=== PATIENT | female | born 1980 | race Caucasian/White ===

== ENCOUNTER 2022-12-29 12:01 | Emergency (ER) | payer MEDICAID, SELFPAY ==
[2022-12-29 12:06] VITALS: BP 129/86; PULSE 124; RESP 18; TEMP 36.8; O2SAT 98; BMI 27.3
--- NOTE | 2022-12-29 12:18 | XR_ITS ---
The [address] [address] Patient Name: JOVANY MONROE MRN: [id number] date: 1980 Sex: F Assigned Patient Location: ER Current Patient Location: ED.MAIN Accession/Order Number: [id number] Exam Date: 12/29/2022 12:55 Report Date: 12/29/2022 14:13 At the request of: LIZET LOYD Procedure: XR ribs RT min 3V w CXR1V EXAMINATION: XR ribs RT min 3V w CXR1V HISTORY: atraumatic pain ; posterior right rib pain; no known injury COMPARISON: No relevant comparison available. FINDINGS: LUNGS: No significant pulmonary parenchymal abnormalities. PLEURA: No pneumothorax, effusion, or pleural thickening. MEDIASTINUM: No visible mass or adenopathy. CARDIAC: No cardiomegaly or cardiac silhouette abnormality. RIBS: Normal. No significant arthropathy or acute abnormality. OTHER: Negative. XR/XR ribs RT min 3V w CXR1V IMPRESSION: 1. No acute cardiopulmonary process. 2. No appreciable rib abnormality. Electronically authenticated by: RAFA JAMES Date: 12/29/2022 14:13
--- NOTE | 2022-12-29 12:19 | ED_ITS ---
HPI - General Adult General Chief complaint: Extremity Injury, Upper Stated complaint: UPPER EXTREMITY PAIN TO RIGHT SIDE AND BACK Time Seen by Provider: 12/29/22 12:05 Source: patient Mode of arrival: walk-in History of Present Illness HPI narrative: 42-year-old female presents to the emergency department for right rib area pain. She's had it for about a week and there was no injury. No dysuria or hematuria. It's worse if she moves. The pain is sharp. Related Data Home Medications Medication Instructions Recorded Confirmed albuterol sulfate 90 mcg/actuation 2 inh inhalation Q6H PRN shortness 12/29/22 12/29/22 aerosol inhaler (Ventolin HFA) of breath or wheezing amitriptyline 100 mg tablet 100 mg PO DAILY 12/29/22 12/29/22 eszopiclone 3 mg tablet 3 mg PO .qhs 12/29/22 12/29/22 omeprazole 40 mg capsule,delayed 40 mg PO BID 12/29/22 12/29/22 release quetiapine 200 mg tablet 400 mg PO DAILY 12/29/22 12/29/22 rosuvastatin 20 mg tablet mg 12/29/22 sertraline 100 mg tablet 100 mg PO Q24H 12/29/22 12/29/22 topiramate 100 mg tablet 100 mg PO DAILY 12/29/22 12/29/22 Previous Rx's Medication Instructions Recorded acetaminophen 300 mg-codeine 30 mg 1 tab PO Q6H PRN pain 5 days #20 12/29/22 tablet tabs ibuprofen 800 mg tablet 800 mg PO Q8H PRN pain #20 tabs 12/29/22 methocarbamol 500 mg tablet 500 mg PO Q6H PRN pain #20 tabs 12/29/22 Allergies Allergy/AdvReac Type Severity Reaction Status Date / Time sulfamethoxazole AdvReac Intermediate Verified 12/29/22 12:09 [From Bactrim] trimethoprim [From Bactrim] AdvReac Intermediate Verified 12/29/22 12:09 Review of Systems ROS Narrative A ten point review of systems is negative except as noted above. PFSH PFSH Social History Smoking status: Former smoker Exam Narrative Exam Narrative: Nurses note and vital signs reviewed and patient is not hypoxic. General: The patient appears well and in no apparent distress. Skin: Warm, dry, no pallor noted. There is no rash noted. Head: Normocephalic, atraumatic Eye: Normal conjunctiva, no drainage Ears, Nose, Mouth, and Throat: oral mucosa is moist. Nares patent. Cardiovascular: Regular Rate and Rhythm Respiratory: Patient is in no distress, no accessory muscle use, lungs are clear to auscultation, no wheezing, rales or rhonchi Back: no bruise or rash. Palpation of the right posterior lateral rib area reproduces her symptoms. No crepitus or erythema. GI: soft and nontender Musculoskeletal: The patient has no evidence of calf tenderness, no pitting edema, symmetrical pulses noted bilaterally Neurological: A&O, normal speech Psychiatric: Cooperative Constitutional Vital Signs, click to edit/add: Last Vital Signs Temp 98.2 F 12/29/22 12:06 Pulse 124 H 12/29/22 12:06 Resp 18 12/29/22 12:06 BP 129/86 12/29/22 12:06 Pulse Ox 98 12/29/22 12:06 Course Vital Signs Vital signs: Vital Signs Temperature 98.2 F 12/29/22 12:06 Pulse Rate 124 H 12/29/22 12:06 Respiratory Rate 18 12/29/22 12:06 Blood Pressure 129/86 12/29/22 12:06 Pulse Oximetry 98 12/29/22 12:06 Temperature 98.2 F 12/29/22 12:06 Pulse Rate 124 H 12/29/22 12:06 Respiratory Rate 18 12/29/22 12:06 Blood Pressure 129/86 12/29/22 12:06 Pulse Oximetry 98 12/29/22 12:06 Medical Decision Making [facility] Narrative Medical decision making narrative: urinalysis and chest x-ray are negative. I've no clinical suspicion for pulmonary embolism. She'll be treated symptomatically. Treatment diagnosis and follow-up were discussed with the patient. Differential Diagnosis Differential Diagnosis: chest wall pain, urinary tract infection, kidney stone Lab Data Lab results reviewed: Yes I reviewed the patient's lab results Labs: Lab Results 12/29/22 Range/Units 12:26 Urine Color Lt. yellow (YELLOW) Urine Clarity Clear (CLEAR) Urine pH 7.0 (5.0-9.0) Ur Specific [place] 1.020 (1.005-1.025) Urine Protein Negative (NEG/TRACE) mg/dL Urine Glucose (UA) Negative (NEGATIVE) mg/dL Urine Ketones Negative (NEGATIVE) mg/dL Urine Occult Blood Negative (NEGATIVE) Urine Nitrite Negative (NEGATIVE) Urine Bilirubin Negative (NEGATIVE) Urine Urobilinogen 1.0 (0.2-1.0) EU/dL Ur Leukocyte Esterase Negative (NEGATIVE) Urine RBC 0-2 (0-2) #/HPF Urine WBC 0-2 A (NONE SEEN) #/HPF Ur Squamous Epith Cells Few A (NONE/RARE) #/LPF Urine Crystals None seen (None Seen) #/HPF Urine Bacteria Trace A (NONE SEEN) #/HPF Urine Casts None seen (NONE SEEN) #/LPF Urine Mucus None seen (NONE SEEN) Imaging Data rib x-rays: Radiologist's impression: Procedure: XR ribs RT min 3V w CXR1V EXAMINATION: XR ribs RT min 3V w CXR1V HISTORY: atraumatic pain ; posterior right rib pain; no known injury COMPARISON: No relevant comparison available. FINDINGS: LUNGS: No significant pulmonary parenchymal abnormalities. PLEURA: No pneumothorax, effusion, or pleural thickening. MEDIASTINUM: No visible mass or adenopathy. CARDIAC: No cardiomegaly or cardiac silhouette abnormality. RIBS: Normal. No significant arthropathy or acute abnormality. OTHER: Negative. IMPRESSION: 1. No acute cardiopulmonary process. 2. No appreciable rib abnormality. Electronically authenticated by: RAFA JAMES Date: 12/29/2022 14:13 Discharge Plan Discharge Chief Complaint: Extremity Injury, Upper Clinical Impression: Rib pain on right side Patient Disposition: Home, Self-Care Time of Disposition Decision: 14:41 Condition: Good Mode of Transportation: Private Vehicle Prescriptions / Home Meds: New methocarbamol 500 mg tablet 500 mg PO Q6H PRN (Reason: pain) Qty: 20 0RF acetaminophen-codeine 300-30 mg tablet 1 tab PO Q6H PRN (Reason: pain) 5 Days Qty: 20 0RF ibuprofen 800 mg tablet 800 mg PO Q8H PRN (Reason: pain) Qty: 20 0RF No Action rosuvastatin 20 mg tablet topiramate 100 mg tablet 100 mg PO DAILY sertraline 100 mg tablet 100 mg PO Q24H albuterol sulfate [Ventolin HFA] 90 mcg/actuation HFA aerosol inhaler 2 inh INHALATION Q6H PRN (Reason: shortness of breath or wheezing) amitriptyline 100 mg tablet 100 mg PO DAILY eszopiclone 3 mg tablet 3 mg PO .qhs omeprazole 40 mg capsule,delayed release(DR/EC) 40 mg PO BID quetiapine 200 mg tablet 400 mg PO DAILY Instructions: Chest Wall Pain (ED) Stand Alone Forms: Portal Instructions Referrals: Shelley Brown MD [Primary Care Provider] - 1 week
[2022-12-29 13:02] LABS: Bilirubin Urine NEGATIVE (NEGATIVE); Blood Urine NEGATIVE (NEGATIVE); Clarity Urine CLEAR (CLEAR); Color Urine LT. YELLOW (YELLOW); Glucose Urine UA NEGATIVE (NEGATIVE); Ketones Urine NEGATIVE (NEGATIVE); Leukocyte Esterase Urine NEGATIVE (NEGATIVE); Nitrite Urine NEGATIVE (NEGATIVE); Protein Urine NEGATIVE (NEG/TRACE)
[2022-12-29 13:17] LABS: Bacteria Urine TRACE #/HPF (NONE SEEN); Cast Seen? NONE SEEN #/LPF (NONE SEEN); Crystals Seen? None Seen #/HPF (None Seen); Mucus Urine NONE SEEN (NONE SEEN); RBC Urine 0-2 #/HPF (0-2); Squamous Epithelial Cell Urine FEW #/LPF (NONE/RARE); WBC Urine 0-2 #/HPF (NONE SEEN)
[2022-12-29] MEDS: KETOROLAC TROMETHAMINE 60 MG/2 ML VIAL IM (15:06)
== END 2022-12-29 15:07 | disposition home or self-care (01) ==
PROVIDERS: Emergency Provider Emergency Medicine; PCP Family Medicine
DX: R07.81 Pleurodynia (principal); Z79.899 Other long term (current) drug therapy; Z87.891 Personal history of nicotine dependence
CPT/HCPCS: 71101; 81001; 96372; 99285

== ENCOUNTER 2023-08-17 17:14 | Outpatient (OUT) | payer MEDICAID, SELFPAY ==
--- OUTSIDE RECORDS SUMMARY | 2023-08-17 17:25 | XMS_ITS | CCD ---
Author Organization [facility] ion [facility] Care Team Providers Care Hair Stylist Name Role Phone MD Jose Luis Gerard Attending Provider MD Shelley San Primary Care Provider [phone] Jose Luis Gerard Unavailable JASWINDER, DR SHELLEY Oscar Admitting Unavailable SAN, DR SHELLEY Oscar Attending Unavailable SAN, DR SHELLEY Oscar Primary Care Unavailable JASWINDER, DR SHELLEY Oscar Consulting Unavailable JASWINDER, DR SHELLEY Oscar Admitting Unavailable SAN, DR SHELLEY Oscar Attending Unavailable SAN, DR SHELLEY Oscar Primary Care Unavailable SAN, DR SHELLEY Oscar Consulting Unavailable BRIELLE, DR MELTON Admitting Unavailable BRIELLE, DR MELTON Attending Unavailable SAN, DR SHELLEY Oscar Primary Care Unavailable HOBSON, DR ELOY Tony Consulting Unavailable BRIELLE, DR MELTON Consulting Unavailable SAMSAIGNACIO Admitting Unavailable SAMSAIGNACIO Attending Unavailable SAN, DR SHELLEY Oscar Primary Care Unavailable SAMIGNACIO BENDER Consulting Unavailable BRIELLE, DR MELTON Admitting Unavailable BRIELLE, DR MELTON Attending Unavailable SAN, DR SHELLEY Oscar Primary Care Unavailable BRIELLE, DR MELTON Consulting Unavailable JASWINDER, DR SHELLEY Oscar Primary Care Unavailable BRITTNEE GA Admitting Unavailable BRITTNEE GA Attending Unavailable BRITTNEE GA Consulting Unavailable ELOY BUSTAMANTE Consulting Unavailable JASWINDER, DR SHELLEY Oscar Primary Care Unavailable BRITTNEE GA Admitting Unavailable BRITTNEE GA Attending Unavailable LORI CARMEN Consulting Unavailable ANGELO RUIZ Consulting Unavailable JASWINDER, DR SHELLEY Oscar Admitting Unavailable JASWINDER, DR SHELLEY Oscar Attending Unavailable JASWINDER, DR SHELLEY Oscar Primary Care Unavailable Shelley San Unavailable Jill Noel Unavailable Leo Shin MD Unavailable Devin Villanueva MD Primary Care Provider Monica BAILON-Harish NIELSEN Unavailable OLIVER REYES Attending Unavailable OLIVER REYES Attending Unavailable HARISH PARRY Attending Unavailab le HARISH PARRY Attending Unavailab le HARISH PARRY Attending Unavailab le Allergies Allergy Classification Reported Allergen(s) Allergy Type Date of Onset Reaction(s) Facility (3 sources) Nitrofurantoin Drug Allergy 09-24-19 22 [facility] (2 sources) Sulfamethoxazole Drug Allergy 09-24-19 22 [facility] (2 sources) Trimethoprim Drug Allergy 09-24-19 22 [facility] (9 sources) NITROFURANTOIN, MACROCRYSTALS / Nitrofurantoin, Monohydrate Drug Allergy Unknown [facility] Other (10 sources) Sulfamethoxazole / Trimethoprim Drug Allergy 07-13-19 23 Unknown [facility] Other (10 sources) varenicline Drug Allergy 07-13-19 23 GI upset, insomnia [facility] Other (1 source) Nitrofurantoin Drug Allergy 02-16-19 14 [facility] (1 source) Sulfamethoxazole / Trimethoprim Drug Allergy 02-16-19 14 [facility] (5 sources) Allergies Reconciled Propensity to adverse reactions Unknown [facility] Other (1 source) Corticosteroids and derivatives Drug Intolerance 07-13-19 23 [facility] Medications Current Medications Medication Drug Class(es) Dates Sig (Normalized) Sig (Original) [id number] 200 actuat albuterol 0.09 mg/actuat metered dose inhaler (3 sources) beta2-Adrenergic Agonist Start: 09-23-2021 Albuterol Sulfate (Ventolin Hfa) 90 mcg/actuation HFA aerosol inhaler Active 1 - 2 PUFF INHALATION As Directed September 23, 2021 12:00am Start: 09-23-2021 Albuterol Sulf ate (Ventolin Hfa) 90 mcg/actuation HFA aerosol inhaler Active 1 - 2 PUFF INHALATION As Directed September 23, 2021 12:00am Start: 08-06-2021 take 2 puff(s) by in halation every four hours Ventolin HFA 108 (90 Base) MCG/ACT inhaler Inhale 2 puffs every 4 (four) hours if needed. 0 08/06/2021 Active amitriptyline hydrochloride 100 mg oral tablet (12 sources) Tricyclic Antidepressant Start: 03-10-2023 End: 06-08-2023 take 1 tablet by mouth at bedtime amitriptyline (Elavil) 100 MG tablet Indications: Recurrent major depressive disorder, remission status unspecified (HCC) (CMS/HCC) Take 1 tablet (100 mg) by mouth at bedtime 90 tablet 0 03/10/2023 06/08/2023 Active Start: 09-23-2021 take 100 mg by mouth at bedtim e Amitriptyline Active 100 MG PO Bedtime September 23, 2021 12:00am Start: 09-23-2021 take 100 mg by mouth at bedtim e Amitriptyline Active 100 MG PO Bedtime September 23, 2021 12:00am take 1 tablet by supa th once daily at bedtime Elavil 100 MG 1 tablet at bedtime Orally Once a day Active 120 actuat budesonide 0.08 mg/actuat / formoterol fumarate 0.0045 mg/actuat metered dose inhaler (2 sources) Corticosteroid, beta2-Adrenergic Agonist Start: 09-23-2021 take 1 puff(s) by inhalation once daily Budesonide-Formoterol (Symbicort) 80-4.5 mcg/actuation HFA aerosol inhaler Active 1 PUFF INHALATION Daily September 23, 2021 12:00am Start: 09-23-2021 take 1 puff(s) by in halation once daily Budesonide-Formoterol (Symbicort) 80-4.5 mcg/actuation HFA aerosol inhaler Active 1 PUFF INHALATION Daily September 23, 2021 12:00am cyclobenzaprine hydrochloride 10 mg oral tablet (1 source) Muscle Relaxant Start: 01-27-2022 take 1 tablet by mouth three times daily as needed for muscle spasms cyclobenzaprine (Flexeril) 10 MG tablet TAKE 1 TABLET BY MOUTH THREE TIMES DAILY NEEDED MUSCLE SPASM 0 01/27/2022 Active eszopiclone 3 mg oral tablet (12 sources) Start: 01-22-2023 take 1 tablet by mouth at bedtime eszopiclone (Lunesta) 3 MG tablet Indications: Chronic insomnia , Sleep apnea, unspecified type Take 1 tablet (3 mg) by mouth at bedtime 30 tablet 1 01/22/2023 Active Start: 09-23-2021 take 3 mg by mouth once daily Eszopiclone Active 3 MG PO Daily September 23, 2021 12:00am Start: 09-23-2021 take 3 mg by mouth once daily Eszopiclone Active 3 MG PO Daily September 23, 2021 12:00am take 1 tablet by supa th every twenty-four hours Lunesta 3 MG 1 tablet immediately before bedtime Orally Once a day Active Ethinyl Estradiol / Levonorgestrel (2 sources) Progestin, Estrogen, Progestin-containing Intrauterine Device Start: 07-24-2022 End: 07-24-2023 levonorgestrel-ethinyl estradiol (Seasonale) 0.15-0.03 MG tablet Indications: Surveillance for control, oral contraceptives Take 1 tablet by mouth in the morning. 84 tablet 3 07/24/2022 07/24/2023 Active take 1 tablet by supa th every twenty-four hours Seasonique 0.15-0.03 &0.01 MG 1 tablet Orally Once a day Active Norethindrone Ac-Eth Estradiol (6 sources) Estrogen Start: 09-23-2021 take 0.05 ug by mouth once daily Norethindrone Ac-Eth Estradiol (Rogelio 1/20 (21)) 1-20 mg-mcg tablet Active 1 TAB PO Daily September 23, 2021 12:00am take 1 tablet by supa th every twenty-four hours Loestrin 1.5/30 (21) 1.5-30 MG-MCG 1 tablet Orally Once a day Active 1.5 ml fremanezumab-vfrm 150 mg/ml auto-injector (1 source) Start: 01-29-2022 Ajovy 225 MG/1.5ML auto-injector INJECT 1 (ONE) pen INTRAMUSCULARLY EVERY month DIRECTED 0 01/29/2022 Active hydrOXYzine pamoate 50 mg oral capsule (4 sources) Antihistamine take 1 capsule by mouth at bedtime as needed Vistaril 50 MG 1 capsule at bedtime as needed Orally PRN Active ibuprofen 800 mg oral tablet (2 sources) Nonsteroidal Anti-inflammatory Drug Start: 09-23-2021 Ibuprofen Active 800 MG PO As Directed September 23, 2021 12:00am Start: 09-23-2021 Ibuprofen Acti ve 800 MG PO As Directed September 23, 2021 12:00am MiraLax 17 GM/SCOOP (5 sources) take 17 g by mouth once daily MiraLax 17 GM/SCOOP as directed Orally Once a day Active omeprazole 40 mg delayed release oral capsule (14 sources) Proton Pump Inhibitor Start: 09-24-2021 take 40 mg by mouth twice daily Omeprazole Active 40 MG PO Twice daily 60 September 24, 2021 12:00am Start: 09-24-2021 take 40 mg by mouth twice amaris y Omeprazole Active 40 MG PO Twice daily 60 September 24, 2021 12:00am Start: 02-28-2019 End: 09-24-2021 take 1 capsule by mouth once daily Omeprazole 40 MG 1 capsule 30 minutes before morning meal Orally Once a day for 30 days Feb, Active Start: 02-28-2019 take 1 capsule by mo [facility] twice daily Omeprazole 40 MG 1 capsule 30 minutes before morning meal Orally bid for 90 days Feb, Active polyethylene glycol [id number] [id number] mg powder for oral solution (4 sources) Osmotic Laxative take 17 g by mouth once daily MiraLax 17 GM/SCOOP as directed Orally Once a day Active promethazine hydrochloride 25 mg oral tablet (10 sources) Phenothiazine promethazine (Ph energan) 25 MG tablet Take 25 mg by mouth every 12 (twelve) hours if needed. 0 Active Promethazine HCl 25 MG 1 tablet as needed Orally PRN for 30 days Active QUEtiapine 200 mg oral tablet (20 sources) Atypical Antipsychotic Start: 03-10-2023 take 1 tablet by mouth at bedtime QUEtiapine (SEROquel) 200 MG tablet Indications: Recurrent major depressive disorder, remission status unspecified (HCC) (CMS/HCC) Take 1 tablet (200 mg) by mouth at bedtime 30 tablet 1 03/10/2023 Active Start: 12-07-2023 take 1 tablet by supa th at bedtime QUEtiapine (SEROquel) 400 MG tablet Indications: Recurrent major depressive disorder, remission status unspecified (HCC) (CMS/HCC) Take 1 tablet (400 mg) by mouth at bedtime 30 tablet 2 01/22/2023 Active Start: 09-01-2022 take 1 tablet by supa th twice daily as needed for anxiety QUEtiapine (SEROquel) 25 MG tablet Indications: Recurrent major depressive disorder, remission status unspecified (HCC) (CMS/HCC) Take 1 tablet (25 mg) by mouth 2 (two) times a day as needed (anxiety). 60 tablet 1 09/01/2022 Active Start: 09-23-2021 take 100 mg by mouth once amaris y Quetiapine Active 100 MG PO Daily September 23, 2021 12:00am Start: 09-23-2021 take 400 mg by mouth once amaris y Quetiapine Active 400 MG PO Daily September 23, 2021 12:00am Start: 09-23-2021 take 100 mg by mouth once amaris y Quetiapine Active 100 MG PO Daily September 23, 2021 12:00am Start: 09-23-2021 take 400 mg by mouth once amaris y Quetiapine Active 400 MG PO Daily September 23, 2021 12:00am take 1 tablet by supa th every twenty-four hours SEROquel 100 MG 1 tablet at bedtime Orally Once a day Active take 1 tablet by supa th every twenty-four hours SEROquel XR 400 MG 1 tablet in the evening Orally Once a day Active rosuvastatin calcium 20 mg oral tablet (5 sources) HMG-CoA Reductase Inhibitor take 1 tablet by mouth every twenty-four hours Rosuvastatin Calcium 20 MG 1 tablet Orally Once a day for 30 days Active Seasonique 0.15-0.03 &0.01 MG (4 sources) take 1 tablet by mouth once daily Seasonique 0.15-0.03 &0.01 MG 1 tablet Orally Once a day Active sertraline 100 mg oral tablet (12 sources) Serotonin Reuptake Inhibitor Start: 11-13-19 take 1 tablet by mouth in the morning sertraline (Zoloft) 100 MG tablet Indications: Recurrent major depressive disorder, remission status unspecified (HCC) (CMS/HCC) Take 1 tablet (100 mg) by mouth in the morning and 1 tablet (100 mg) before bedtime. 180 tablet 0 11/12/2022 Active Start: 09-23-2021 take 100 mg by mouth once amaris y Sertraline Active 100 MG PO Daily September 23, 2021 12:00am Start: 09-23-2021 take 100 mg by mouth once amaris y Sertraline Active 100 MG PO Daily September 23, 2021 12:00am take 2 tablets by mo uth every twenty-four hours Zoloft 100 MG 2 TABLETS Orally Once a day Active topiramate 100 mg oral tablet (12 sources) Start: 09-23-2021 take 100 mg by mouth twice daily Topiramate Active 100 MG PO Twice daily September 23, 2021 12:00am Start: 09-23-2021 take 100 mg by mouth twice govind ly Topiramate Active 100 MG PO Twice daily September 23, 2021 12:00am take 1 tablet by supa th in the morning topiramate (Topamax) 100 MG tablet Take 100 mg by mouth in the morning. 0 Active take 2 tablets by mo uth every twelve hours Topamax 100 MG 2 TABLETS Orally TWICE A DAY Active Completed/Discontinued Medications Medication Drug Class(es) Dates Sig (Normalized) Sig (Original) hyoscyamine sulfate 0.125 mg sublingual tablet (6 sources) Start: 04-13-2019 take 1 tablet under the tongue three times daily as needed Hyoscyamine Sulfate SL 0.125 MG 1 tablet under the tongue and allow to dissolve Sublingual Three times a day prn for 30 day(s) Mar, Not-Taking Problems Active Problems Problem Classification Problem Date Documented Da te Episodic/Chronic Anxiety disorders (20 sources) Generalized anxiety disorder; Translations: [Generalized anxiety disorder] Onset: 3 07-12-2022 Chronic Conditions associated with dizziness or vertigo (4 sources) Dizziness and giddiness; Translations: [DIZZINESS AND GIDDINESS] Onset: 2 Episodic Contraceptive and procreative management (9 sources) Intrauterine contraceptive device in situ; Translations: [Presence of (intrauterine) contraceptive device] Episodic Endometriosis (1 source) Endometriosis (clinical); Translations: [Endometriosis, unspecified] Onset: 3 07-12-2022 Chronic Esophageal disorders (15 sources) Gastroesophageal reflux disease; Translations: [Gastro-esophageal reflux disease without esophagitis] Onset: 3 07-12-2022 Chronic Fluid and electrolyte disorders (1 source) Dehydration; Translations: [DEHYDRATION] Onset: 2 Episodic Headache; including migraine (20 sources) Migraine; Translations: [Migraine, unspecified, not intractable, without status migrainosus] Onset: 3 07-12-2022 Chronic Headache; including migraine (5 sources) Headache; Translations: [Headache, unspecified] Episodic Headache; including migraine (1 source) Headache; including migraine; Translations: [HEADACHE UNSPECIFIED] Onset: 2 Heart valve disorders (16 sources) Mitral valve prolapse; Translations: [Nonrheumatic mitral (valve) prolapse] Onset: 2 07-12-2022 Chronic Malaise and fatigue (14 sources) Weakness; Translations: [Fatigue] Onset: 2 Episodic Menstrual disorders (20 sources) Irregular periods; Translations: [Irregular menstruation, unspecified] Onset: 2 Chronic Miscellaneous mental health disorders (10 sources) Persistent insomnia; Translations: [Psychophysiologic insomnia] Onset: 3 07-12-2022 Chronic Mood disorders (20 sources) Recurrent major depression; Translations: [Major depressive disorder, recurrent, unspecified] Onset: 3 07-12-2022 Chronic Mycoses (5 sources) Candidiasis; Translations: [Candidiasis, unspecified] Episodic Nausea and vomiting (14 sources) Nausea; Translations: [Nausea and vomiting] Onset: 2 Episodic Nonspecific chest pain (6 sources) Chest pain, unspecified; Translations: [Chest pain] Onset: 2 Episodic Other circulatory disease (5 sources) Elevated blood-pressure reading without diagnosis of hypertension; Translations: [Elevated blood-pressure reading, without diagnosis of hypertension] Episodic Other connective tissue disease (1 source) Other muscle spasm; Translations: [OTHER MUSCLE SPASM] Onset: 2 Episodic Other female genital disorders (10 sources) Dyspareunia due to non-psychogenic cause in the female; Translations: [Other specified dyspareunia] Onset: 3 07-12-2022 Chronic Other female genital disorders (9 sources) Pain in female genitalia on intercourse; Translations: [Unspecified dyspareunia] Chronic Other gastrointestinal disorders (9 sources) Chronic idiopathic constipation; Translations: [Chronic idiopathic constipation] Chronic Other gastrointestinal disorders (10 sources) Irritable bowel syndrome characterized by constipation; Translations: [Irritable bowel syndrome with constipation] Onset: 3 07-12-2022 Chronic Other gastrointestinal disorders (9 sources) Constipation; Translations: [Constipation, unspecified] Episodic Other gastrointestinal disorders (9 sources) Slow transit constipation; Translations: [Slow transit constipation] Episodic Other hematologic conditions (5 sources) Personal history of diseases of the blood and blood-forming organs and certain disorders involving the immune mechanism; Translations: [Disease of blood AND/OR blood-forming organ] Episodic Other hereditary and degenerative nervous system conditions (1 source) Restless legs; Translations: [Restless legs syndrome] Onset: 3 07-12-2022 Chronic Other hereditary and degenerative nervous system conditions (1 source) Finding of scapular structure; Translations: [Other specified extrapyramidal and movement disorders] Onset: 3 07-12-2022 Chronic Other lower respiratory disease (5 sources) Dyspnea; Translations: [Other forms of dyspnea] Episodic Other nervous system disorders (5 sources) Trigeminal neuralgia; Translations: [Trigeminal neuralgia] Episodic Other nutritional; endocrine; and metabolic disorders (5 sources) Abnormal weight loss; Translations: [Abnormal weight loss] Episodic Other nutritional; endocrine; and metabolic disorders (5 sources) Body mass index 25-29 - overweight; Translations: [Body mass index (BMI) 25.0-25.9, adult] Episodic Other nutritional; endocrine; and metabolic disorders (5 sources) Abnormal weight gain; Translations: [Abnormal weight gain] Episodic Other nutritional; endocrine; and metabolic disorders (5 sources) Overweight; Translations: [Overweight] Episodic Other screening for suspected conditions (not mental disorders or infectious disease) (18 sources) Atypical squamous cells of undetermined significance ; Translations: [Abnormal cytological findings in specimens from other organs, systems and tissues] Episodic Other skin disorders (5 sources) Generalized hyperhidrosis; Translations: [Generalized hyperhidrosis] Episodic Residual codes; unclassified (1 source) Sleep apnea; Translations: [Sleep apnea, unspecified] Onset: 3 07-12-2022 Chronic Residual codes; unclassified (9 sources) Family history of malignant neoplasm of pancreas; Translations: [Family history of malignant neoplasm of digestive organs] Episodic Residual codes; unclassified (5 sources) Normal body mass index; Translations: [Body mass index (BMI) 21.0-21.9, adult] Episodic Screening and history of mental health and substance abuse codes (6 sources) Personal history of nicotine dependence; Translations: [Nicotine dependence] Onset: 2 Episodic Spondylosis; intervertebral disc disorders; other back problems (20 sources) Degeneration of cervical intervertebral disc; Translations: [Other cervical disc degeneration, unspecified cervical region] Onset: 3 07-12-2022 Chronic Spondylosis; intervertebral disc disorders; other back problems (1 source) Pain in thoracic spine; Translations: [PAIN IN THORACIC SPINE] Onset: 2 Episodic Sprains and strains (1 source) Strain of muscle and tendon of back wall of thorax, subsequent encounter Episodic Substance-related disorders (19 sources) Light cigarette smoker; Translations: [Nicotine dependence, cigarettes, uncomplicated] Onset: 3 07-12-2022 Chronic Syncope (1 source) Syncope and collapse; Translations: [SYNCOPE AND COLLAPSE] Onset: 2 Episodic Unclassified (1 source) CONTACT W/AND (SUSP) EXPOS COVID-19; Translations: [CONTACT W/AND (SUSP) EXPOS COVID-19] Onset: 2 Past or Other Problems Problem Classification Problem Date Documented Date Episodic/Chronic Abdominal pain (15 sources) Abdominal pain; Translations: [Unspecified abdominal pain] Onset: 07-12-2022 07-12-2022 Episodic Deficiency and other anemia (1 source) Iron deficiency anemia secondary to inadequate dietary iron intake; Translations: [Other iron deficiency anemias] Onset: 07-12-2022 07-12-2022 Episodic Gastritis and duodenitis (10 sources) Gastritis; Translations: [Gastritis, unspecified, without bleeding] Onset: 07-12-2022 07-12-2022 Episodic Other connective tissue disease (10 sources) Fibromyalgia; Translations: [Fibromyalgia] Onset: 07-12-2022 07-12-2022 Episodic Other female genital disorders (19 sources) Cervical intraepithelial neoplasia grade 1; Translations: [Mild cervical dysplasia] Onset: 07-12-2022 07-12-2022 Episodic Other lower respiratory disease (4 sources) Other forms of dyspnea; Translations: [OTHER FORMS OF DYSPNEA] Onset: 10-31-2021 Episodic Sexually transmitted infections (not HIV or hepatitis) (19 sources) 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 TECHNIQUE: A variety of imaging planes and parameters were utilized for visualization of suspected pathology. Images were performed without and with Dotarem contrast. FINDINGS: CEREBRUM: No edema, hemorrhage, mass, acute infarction, or inappropriate atrophy. CEREBELLUM: No edema, hemorrhage, mass, acute infarction, or inappropriate atrophy. BRAINSTEM: No edema, hemorrhage, mass, acute infarction, or inappropriate atrophy. CSF SPACES: Ventricles, cisterns, and sulci are appropriate for age. No hydrocephalus, subarachnoid hemorrhage, or mass. SKULL: No mass or other significant visible lesion. SINUSES: Limited views demonstrate no significant mucosal thickening or fluid. ORBITS: Limited views are unremarkable. OTHER: No abnormal meningeal or parenchymal enhancement. IMPRESSION: Mild scattered white matter signal abnormality with no associated restricted diffusion or postcontrast enhancement. Nonspecific, possibly chronic small vessel ischemic changes No acute infarct Electronically authenticated by: ELOY GILLETTE Date: 2022-02-12 07:28 Normal [facility] ECHOCARDIO M/2D COMPLETEon 1 04-14-2021 ECHOCARDIO M/2D COMPLETE Patient: JOVANY MONROE Exam Date: 02/11/2022 : 1980 Gender:F Ordering : DR SHELLEY SAN M.D. Admission #: [id number] Family : Order #: [id number] CLICK HERE TO VIEW EXAM ECHOCARDIOGRAM REPORT PROCEDURE: CARDIO PULMONARY ECHOCARDIO M/2D COMP INDICATIONS: Mitral valve prolapse COMPARISON: None. DESCRIPTION: COMPLETE ECHOCARDIOGRAM Real-time transthoracic echocardiography with 2D, M-mode, spectral and color flow Doppler performed. QUALITY: Technical quality was good. 64 116# BP 124/100 LEFT VENTRICLE: Normal chamber size. Normal left ventricular wall thickness. LV EF: Normal left ventricular ejection fraction, (>55%). DIASTOLIC: Normal diastolic function. ATRIAL SEPTUM: Visually appears intact. LEFT ATRIUM: Normal chamber size. RIGHT ATRIUM: Normal chamber size. RIGHT VENTRICLE: Normal chamber size. Normal right ventricular systolic function. TRICUSPID VALVE: Normal mobility and thickness. No stenosis with no regurgitation. MITRAL VALVE: Normal mobility and thickness. No mitral valve prolapse. No evidence of mitral valve stenosis. There is no mitral annular calcification. Trivial mitral regurgitation. AORTIC VALVE: Normal trileaflet appearance. No visible sclerosis. Normal leaflet mobility. No evidence of aortic valve stenosis. No aortic regurgitation. AORTIC ROOT: Normal diameter and appearance. PULMONIC VALVE: Normal thickness and mobility. No stenosis. Trivial regurgitation. PERICARDIUM: No evidence of pericardial effusion. IVC: Collapses with inspirations. IVC is normal in size. CONCLUSION: Global left ventricular systolic function is normal; visually estimated ejection fraction is 55 to 60%. No wall motion abnormalities. The right ventricle is normal in size and systolic function. No significant valvular abnormalities. Adult Echocardiography Procedure Report Left Ventricle LVEDD (3.7 - 5.6 cm): 4.43 cm LVESD (2.2 - 4.0 cm): 3.15 cm LVIVS thickness (0.6 - 1.2 cm): 0.71 cm LVPW thickness (0.5 - 1.0 cm): 0.65 cm e': 0.11 m/s E - e': 4.35 LVOT Max Gradient: 1.90 mm[Hg] Peak Velocity (LVOT): 0.69 m/s Mean Velocity (LVOT): 0.52 m/s LVOT Diameter 1.99 cm Left Ventricular Ejection Fraction: 55.94 %, 55.94 % Left Atrium LA Volume Index (2D A2C): 25.69 ml, 25.69 ml Left Atrium Systolic Dimension: 2.84 cm Mitral Valve MV E to A Ratio: 1, 0.96 Mitral Valve A-Wave Peak Velocity: 0.46 m/s, 0.48 m/s Mitral Valve E-Wave Peak Velocity: 0.46 m/s, 0.46 m/s Right Ventricle Aorta AO Root Diam: 2.68 cm Aortic Valve AoV Area (Peak Sanju): 2.32 cm2, 2.30 cm2 AoV Area (VTI): 2.23 cm2, 2.18 cm2 Peak Velocity(Antegrade Flow): 0.94 m/s, 0.92 m/s Peak Gradient(Antegrade Flow): 3.50 mm[Hg], 3.37 mm[Hg] Mean Velocity(Antegrade Flow): 0.70 m/s, 0.66 m/s Mean Gradient(Antegrade Flow): 2.15 mm[Hg], 1.98 mm[Hg] Velocity Time Integral: 19.59 cm, 18.73 cm Tricuspid Valve Peak Velocity: 0.40 m/s Pulmonic Valve Peak Velocity: 0.69 m/s, 0.73 m/s Peak Gradient: 1.90 mm[Hg], 2.14 mm[Hg] Right Atrium Right Atrium Systolic Pressure: 9.93 ml, 9.93 ml Dictated by: Zofia Israel M.D. on 02/18/2022 at 09:48 Approved by: Zofia Israel M.D. on 02/18/2022 at 09:51 Normal [facility] CPKon 01-30-2022 CK [Catalytic activity/Vol] 47 U/L Normal 26-192 [facility] Comment on above: Performed By: #### S SCRArpita GRASTCX #### [facility] [address] [place] [address] Dr. Rajinder Cooley VITAMIN B12on 01-30-2022 Cobalamin (Vitamin B12) [Mass/Vol] 91.0 pg/mL Critically low 193.0-986.0 [facility] Comment on above: Performed By: #### L ACT #### [facility] [address] [place] [address] Dr. Rajinder Cooley VITAMIN D 25 OHon 01-30-2022 VIT D 25-OH 32.4 ng/mL Normal [facility] Comment on above: Performed By: #### L ACT #### [facility] [address] [place] [address] Dr. Rajinder Cooley VIT D RANGES SEE BELOW Normal [facility] Comment on above: Result Comment: <20 ng/mL Vit D deficient 20 - <30 ng/mL Vit D insufficient 30 - 100 ng/mL Vit D sufficient >100 ng/mL Potential Toxicity Performed By: #### L ACT #### [facility] [address] [address] [address] Rajinder Cooley CBC AUTO DIFFon 01-27-2022 BASO # 0.0 103/ul Normal 0.0-0.1 [facility] Comment on above: Performed By: #### C BC #### [facility] [address] [address] [address] Rajinder Cooley Basophils/100 WBC (Bld) 0.7 % Normal 0.2-2.0 [facility] Comment on above: Performed By: #### C BC #### [facility] [address] [place] [address] Dr. Rajinder Cooley EO # 0.1 103/ul Normal 0.0-0.7 [facility] Comment on above: Performed By: #### C BC #### [facility] [address] [place] [address] Dr. Rajinder Cooley Eosinophils/100 WBC (Bld) 1.9 % Normal 0.9-7.0 [facility] Comment on above: Performed By: #### C BC #### [facility] [address] [place] [address] Dr. Rajinder Cooley Erythrocyte distribution width (RBC) [Ratio] 15.0 % Normal 11.0-15.0 [facility] Comment on above: Performed By: #### C BC #### [facility] [address] [place] [address] Dr. Rajinder Cooley Hematocrit (Bld) [Volume fraction] 40.9 % Normal 36.0-48.0 [facility] Comment on above: Performed By: #### C BC #### [facility] [address] [place] [address] Dr. Rajinder Cooley Hemoglobin (Bld) [Mass/Vol] 13.5 g/dL Normal 12.0-16.0 [facility] Comment on above: Performed By: #### C BC #### [facility] [address] [place] [address] Dr. Rajinder Cooley IG # 0.03 10e3/ul Normal 0.00-0.03 [facility] Comment on above: Performed By: #### C BC #### [facility] [address] [address] [address] Rajinder Cooley IG % 0.7 % Critically high 0.0-0.5 [facility] Comment on above: Performed By: #### C BC #### [facility] [address] [address] [address] Rajinder Cooley LYMPH # 1.3 103/ul Normal 1.2-3.8 [facility] Comment on above: Performed By: #### C BC #### [facility] [address] [place] [address] Dr. Rajinder Cooley Lymphocytes/100 WBC (Bld) 30.1 % Normal 20.5-60.0 [facility] Comment on above: Performed By: #### C BC #### [facility] [address] [place] [address] Dr. Rajinder Cooley MANUAL DIFF REQ NO Normal [facility] Comment on above: Performed By: #### C BC #### [facility] [address] [place] [address] Dr. Rajinder Cooley MCH (RBC) [Entitic mass] 33.6 pg Normal 26.7-34.0 [facility] Comment on above: Performed By: #### C BC #### [facility] [address] [place] [address] Dr. Rajinder Cooley MCHC (RBC) [Mass/Vol] 33.0 g/dL Normal 29.9-35.2 [facility] Comment on above: Performed By: #### C BC #### [facility] [address] [place] [address] Dr. Rajinder Cooley MCV (RBC) [Entitic vol] 101.7 fL Critically high 81.0-99.0 [facility] Comment on above: Performed By: #### C BC #### [facility] [address] [place] [address] Dr. Rajinder Cooley MONO # 0.2 103/ul Critically low 0.3-0.8 [facility] Comment on above: Performed By: #### C BC #### [facility] [address] [address] [address] Rajinder Cooley Monocytes/100 WBC (Bld) 5.2 % Normal 1.7-12.0 [facility] Comment on above: Performed By: #### C BC #### [facility] [address] [address] [address] Rajinder Cooley NEUT # 2.6 103/ul Normal 1.4-6.5 [facility] Comment on above: Performed By: #### C BC #### [facility] [address] [address] [address] Rajinder Cooley Neutrophils/100 WBC (Bld) 61.4 % Normal 43.0-75.0 [facility] Comment on above: Performed By: #### C BC #### [facility] [address] [place] [address] Dr. Rajinder Cooley Platelet mean volume (Bld) [Entitic vol] 10.8 fL Normal 9.5-13.5 [facility] Comment on above: Performed By: #### C BC #### [facility] [address] [address] [address] Rajinder Cooley PLT 173 103/ul Normal 150-450 [facility] Comment on above: Performed By: #### C BC #### [facility] [address] [address] [address] Rajinder Cooley RBC 4.02 106/ul Critically low 4.20-5.40 [facility] Comment on above: Performed By: #### C BC #### [facility] [address] [address] [address] Rajinder Cooley WBC 4.3 103/ul Normal 4.0-11.0 [facility] Comment on above: Performed By: #### C BC #### [facility] [address] [address] [address] Rajinder Cooley ER URINE PROFILEon 2 Bilirubin Ql (U) SMALL Abnormal NEGATIVE [facility] Comment on above: Performed By: #### P REGU, ERUR #### [facility] [address] [place] [address] Dr. Rajinder Cooley Clarity (U) CLEAR Normal CLEAR [facility] Comment on above: Performed By: #### P REGU, ERUR #### [facility] [address] [place] [address] Dr. Rajinder Cooley Color (U) YELLOW Normal YELLOW [facility] Comment on above: Performed By: #### P REGU, ERUR #### [facility] [address] [place] [address] Dr. Rajinder AGUDELOD A micrscopic examination will be performed if indicated. Normal [facility] Comment on above: Performed By: #### P REGU, ERUR #### [facility] [address] [place] [address] Dr. Rajinder Cooley Glucose Ql (U) Negative Normal NEGATIVE [facility] Comment on above: Performed By: #### P REGU, ERUR #### [facility] [address] [place] [address] Dr. Rajinder Cooley Hemoglobin Ql (U) Negative Normal NEGATIVE [facility] Comment on above: Performed By: #### P REGU, ERUR #### [facility] [address] [place] [address] Dr. Rajinder Cooley Ketones Ql (U) Negative Normal NEGATIVE [facility] Comment on above: Performed By: #### P REGU, ERUR #### [facility] [address] [place] [address] Dr. Rajinder Cooley LEUKOCYTES Negative Normal NEGATIVE [facility] Comment on above: Performed By: #### P REGU, ERUR #### [facility] [address] [place] [address] Dr. Rajinder Cooley Nitrite Ql (U) Negative Normal NEGATIVE [facility] Comment on above: Performed By: #### P REGU, ERUR #### [facility] [address] [place] [address] Dr. Rajinder Cooley pH (U) 6.0 [pH] Normal 5-9 [facility] Comment on above: Performed By: #### P REGU, ERUR #### [facility] [address] [address] [address] Rajinder Cooley SPEC GRAVITY >=1.030 Abnormal 1.005-<=1.025 [facility] Comment on above: Performed By: #### P REGU, ERUR #### [facility] [address] [address] [address] Rajinder Cooley UA PROTEIN TRACE Normal NEGATIVE/ TRACE [facility] Comment on above: Performed By: #### P REGU, ERUR #### [facility] [address] [address] [address] Rajinder Cooley UR MICRO IND NOT INDICATED Normal [facility] Comment on above: Performed By: #### P REGU, ERUR #### [facility] [address] [place] [address] Dr. Rajinder Cooley Urobilinogen Qn (U) 1.0 {Ivory'U}/dL Normal 0.2 - 1. 0 [facility] Comment on above: Performed By: #### P REGU, ERUR #### [facility] [address] [place] [address] Dr. Rajinder Cooley URon 01-27-2022 , QUAL Negative Normal NEGATIVE [facility] Comment on above: Performed By: #### P REGU, ERUR #### [facility] [address] [place] [address] Dr. Rajinder Cooley PROF CHEM 8 (BAS METB)on Anion gap [Moles/Vol] 10.8 mmol/L Normal [facility] Comment on above: Performed By: #### S SCRN, GRASTCX #### [facility] [address] [address] [address] Rajinder Cooley Calcium [Mass/Vol] 8.5 mg/dL Normal 8.5-10.1 [facility] Comment on above: Performed By: #### S SCRN, GRASTCX #### [facility] [address] [address] [address] Rajinder Cooley Chloride [Moles/Vol] 103 mmol/L Normal 98-107 [facility] Comment on above: Performed By: #### S SCRN, GRASTCX #### [facility] [address] [address] [address] Rajinder Cooley CO2 [Moles/Vol] 23.8 mmol/L Normal 21.0-32.0 [facility] Comment on above: Performed By: #### S SCRN, GRASTCX #### [facility] [address] [place] [address] Dr. Rajinder Cooley Creatinine [Mass/Vol] 0.73 mg/dL Normal 0.55-1.02 [facility] Comment on above: Performed By: #### S SCRN, GRASTCX #### [facility] [address] [place] [address] Dr. Rajinder Cooley EGFR-AF THAI >60 Normal >=60 [facility] Comment on above: Performed By: #### S SCRN, GRASTCX #### [facility] [address] [place] [address] Dr. Rajinder Cooley EGFR-NON AF THAI >60 Normal >=60 [facility] Comment on above: Performed By: #### S SCRN, GRASTCX #### [facility] [address] [place] [address] Dr. Rajinder Cooley Glucose [Mass/Vol] 83 mg/dL Normal 74-106 [facility] Comment on above: Performed By: #### S SCRN, GRASTCX #### [facility] [address] [place] [address] Dr. Rajinder Cooley Potassium [Moles/Vol] 3.6 mmol/L Normal 3.5-5.1 [facility] Comment on above: Performed By: #### S SCRN, GRASTCX #### [facility] [address] [place] [address] Dr. Rajinder Cooley Sodium [Moles/Vol] 134 mmol/L Critically low 136-[address] [facility] Comment on above: Performed By: #### S SCRN, GRASTCX #### [facility] [address] [place] [address] Dr. Rajinder Cooley Urea nitrogen [Mass/Vol] 13.0 mg/dL Normal 7.0-18.0 [facility] Comment on above: Performed By: #### S EMIGDIO GRASTCX #### [facility] [address] [address] [address] Rajinder Cooley Urea nitrogen/Creatinine [Mass ratio] 17.8 mg/mg Normal [facility] Comment on above: Performed By: #### S EMIGDIO GRASTCX #### [facility] [address] [address] [address] Rajinder Cooley XR TSPINE 2 VIEWSon 01-28-20 22 XR TSPINE 2 VIEWS EXAM: XR TSPINE 2 VIEWS HISTORY: Pain following fall COMPARISON: None. TECHNIQUE: 3 views FINDINGS: Straightening of the normal thoracic kyphosis. Vertebral body heights and alignments exhibit no fracture or listhesis. Intervertebral disc space heights are unremarkable. Age-related intervertebral disc space narrowing and endplate osteophytes. IMPRESSION: Age-indeterminate straightening of the normal cervical lordosis. Findings suggest muscle spasm. Electronically authenticated by: ELOY BUSTAMANTE Date: 2022-01-27 15:43 Normal [facility] CBC AUTO DIFFon 01-22-2022 BASO # 0.0 103/ul Normal 0.0-0.1 [facility] Comment on above: Performed By: #### S EMIGDIO GRASTCX #### [facility] [address] [place] [address] Dr. Rajinder Cooley Basophils/100 WBC (Bld) 0.7 % Normal 0.2-2.0 [facility] Comment on above: Performed By: #### S EMIGDIO GRASTCX #### [facility] [address] [place] [address] Dr. Rajinder Cooley EO # 0.1 103/ul Normal 0.0-0.7 [facility] Comment on above: Performed By: #### S EMIGDIO GRASTCX #### [facility] [address] [place] [address] Dr. Rajinder Cooley Eosinophils/100 WBC (Bld) 2.6 % Normal 0.9-7.0 [facility] Comment on above: Performed By: #### S SCRN, GRASTCX #### [facility] [address] [place] [address] Dr. Rajinder Cooley Erythrocyte distribution width (RBC) [Ratio] 14.7 % Normal 11.0-15.0 [facility] Comment on above: Performed By: #### S SCRN, GRASTCX #### [facility] [address] [place] [address] Dr. Rajinder Cooley Hematocrit (Bld) [Volume fraction] 42.8 % Normal 36.0-48.0 [facility] Comment on above: Performed By: #### S SCRN GRASTCX #### [facility] [address] [place] [address] Dr. Rajinder Cooley Hemoglobin (Bld) [Mass/Vol] 14.5 g/dL Normal 12.0-16.0 [facility] Comment on above: Performed By: #### S EMIGDIO GRASTCX #### [facility] [address] [place] [address] Dr. Rajinder Cooley IG # 0.02 10e3/ul Normal 0.00-0.03 [facility] Comment on above: Performed By: #### S EMIGDIO GRASTCX #### [facility] [address] [place] [address] Dr. Rajinder Cooley IG % 0.5 % Normal 0.0-0.5 [facility] Comment on above: Performed By: #### S EMIGDIO GRASTCX #### [facility] [address] [place] [address] Dr. Rajinder Cooley LYMPH # 1.7 103/ul Normal 1.2-3.8 [facility] Comment on above: Performed By: #### S SCRArpita GRASTCX #### [facility] [address] [place] [address] Dr. Rajinder Cooley Lymphocytes/100 WBC (Bld) 40.3 % Normal 20.5-60.0 [facility] Comment on above: Performed By: #### S SCRN, GRASTCX #### [facility] [address] [place] [address] Dr. Rajinder Cooley MANUAL DIFF REQ NO Normal [facility] Comment on above: Performed By: #### S EMIGDIO, GRASTCX #### [facility] [address] [place] [address] Dr. Rajinder Cooley MCH (RBC) [Entitic mass] 32.8 pg Normal 26.7-34.0 [facility] Comment on above: Performed By: #### S EMIGDIO, GRASTCX #### [facility] [address] [place] [address] Dr. Rajinder Cooley MCHC (RBC) [Mass/Vol] 33.9 g/dL Normal 29.9-35.2 [facility] Comment on above: Performed By: #### S EMIGDIO, GRASTCX #### [facility] [address] [place] [address] Dr. Rajinder Cooley MCV (RBC) [Entitic vol] 96.8 fL Normal 81.0-99.0 [facility] Comment on above: Performed By: #### S EMIGDIO, GRASTCX #### [facility] [address] [place] [address] Dr. Rajinder Cooley MONO # 0.3 103/ul Normal 0.3-0.8 [facility] Comment on above: Performed By: #### S EMIGDIO, GRASTCX #### [facility] [address] [place] [address] Dr. Rajinder Cooley Monocytes/100 WBC (Bld) 6.3 % Normal 1.7-12.0 [facility] Comment on above: Performed By: #### S SCRN, GRASTCX #### [facility] [address] [place] [address] Dr. Rajinder Cooley NEUT # 2.1 103/ul Normal 1.4-6.5 [facility] Comment on above: Performed By: #### S SCRN, GRASTCX #### [facility] [address] [place] [address] Dr. Rajinder Cooley Neutrophils/100 WBC (Bld) 49.6 % Normal 43.0-75.0 [facility] Comment on above: Performed By: #### S SCRN, GRASTCX #### [facility] [address] [address] [address] Rajinder Cooley Platelet mean volume (Bld) [Entitic vol] 10.6 fL Normal 9.5-13.5 [facility] Comment on above: Performed By: #### S SCRN, GRASTCX #### [facility] [address] [place], [place] [address] Dr. Rajinder Cooley PLT 236 103/ul Normal 150-450 [facility] Comment on above: Performed By: #### S SCRN, GRASTCX #### [facility] [address] [address] [address] Rajinder Cooley RBC 4.42 106/ul Normal 4.20-5.40 [facility] Comment on above: Performed By: #### S SCRN, GRASTCX #### [facility] [address] [address] [address] Rajinder Cooley WBC 4.3 103/ul Normal 4.0-11.0 [facility] Comment on above: Performed By: #### S SCRN, GRASTCX #### [facility] [address] [address] HEAD WO CONon 01-22-2022 CT HEAD WO CON EXAM: CT HEAD WO CON REASON FOR EXAM: Female, 41 years, Syncope. TECHNIQUE: Computed tomography of the head is performed in the axial projection from the base of the skull to the vertex. Sagittal and coronal reconstructed images are performed. Dose reduction techniques were achieved by using automated exposure control and/or adjustment of mA and/or KVP according to patient size and/or use of iterative reconstruction technique. COMPARISON: None. Comparison is made with report from remote study from 08/19/2006. These images are not available at the time of interpretation. FINDINGS: Normal soft tissues. Normal calvarium. The ventricles have normal size and configuration for patient's age. Normal brain parenchyma. Normal basal ganglia. Normal brainstem. The cerebellum is normal. There is no evidence for acute ischemia. There is no evidence for acute hemorrhage. The visualized paranasal sinuses are clear. IMPRESSION: Normal CT of the brain. Electronically authenticated by: ANGELO RUIZ Date: 2022-01-22 19:42 Normal [facility] Covid-19 PCR (CVDTBH)on SARS-CoV-2 (COVID-19) RNA MUKESH+probe Ql (Unsp spec) Not detected Normal NOT DETECTED [facility] Comment on above: Result Comment: When diagnostic testing is negative, the possibility of a false negative should be considered in the context of a patient's recent exposures and the presence of clinical signs and symptoms consistent with SARS-CoV-2. This test is not yet approved or cleared by the [place] FDA. When there are no FDA-approved or cleared tests available, and other criteria are met, FDA can make tests available under an emergency access mechanism called an Emergency Use Authorization (EUA). The EUA for this test is supported by the [place] of Health and Human Service's declaration that circumstances exist to justify the emergency use of in vitro diagnostics for the detection and/or diagnosis of the virus that causes COVID-19. This EUA will remain in effect for the duration of the COVID-19 declaration justifying emergency of IVDs, unless it is terminated or revoked by the FDA (after which the test may no longer be used). Performed By: #### C VDTBH #### [facility] [address] [place] [address] Dr. Rajinder Cooley D-DIMERon 01-22-2022 D-DIMER 0.42 mg/L FEU Normal <=0.59 [facility] Comment on above: Performed By: #### L ACT #### [facility] [address] [place] [address] Dr. Rajinder Cooley D-DIMER COMMENTS SEE BELOW Normal [facility] Comment on above: Result Comment: Incr eases in D-Dimer concentration observed with thromboembolic events can be variable due to localization, size, and age of the thrombus. Therefore, a thromboembolic event cannot be diagnosed with certainty on the basis of the reference range. D-Dimers may also be elevated for a variety of disorders including: advanced age, , coronary disease, cancer, liver disease, infection, inflammation, hematoma, DIC, trauma, post-surgery, diabetes, thrombolytic or anticoagulant therapy, stress, and generalized hospitalization. Performed By: #### L ACT #### [facility] [address] [place] [address] Dr. Rajinder VALLADARES URINE PROFILEon 2 Bilirubin Ql (U) SMALL Abnormal NEGATIVE [facility] Comment on above: Performed By: #### SAUMYA VIDALESICRO #### [facility] [address] [place] [address] Dr. Rajinder Cooley Clarity (U) CLEAR Normal CLEAR [facility] Comment on above: Performed By: #### SAUMYA VIDALESICRO #### [facility] [address] [place] [address] Dr. Rajinder Cooley Color (U) YELLOW Normal YELLOW [facility] Comment on above: Performed By: #### SAUMYA VIDALESICRO #### [facility] [address] [place] [address] Dr. Rajinder APARICIO A micrscopic examination will be performed if indicated. Normal [facility] Comment on above: Performed By: #### SAUMYA VIDALESICRO #### [facility] [address] [place] [address] Dr. Rajinder Cooley Glucose Ql (U) Negative Normal NEGATIVE [facility] Comment on above: Performed By: #### SAUMYA VIDALESICRO #### [facility] [address] [place] [address] Dr. Rajinder Cooley Hemoglobin Ql (U) TRACE-INTACT Abnormal NEGATIVE [facility] Comment on above: Performed By: #### SAUMYA VIDALESICRO #### [facility] [address] [place] [address] Dr. Rajinder Cooley Ketones Ql (U) >=80 Abnormal NEGATIVE [facility] Comment on above: Performed By: #### SAUMYA VIDALESICRO #### [facility] [address] [place] [address] Dr. Rajinder Cooley LEUKOCYTES Negative Normal NEGATIVE [facility] Comment on above: Performed By: #### SAUMYA VIDALESICRO #### [facility] [address] [place] [address] Dr. Rajinedr Cooley Nitrite Ql (U) Negative Normal NEGATIVE [facility] Comment on above: Performed By: #### Celestina SHORT, UMICRO #### [facility] [address] [address] [address] Rajinder Cooley pH (U) 5.5 [pH] Normal 5-9 [facility] Comment on above: Performed By: #### Celestina SHORT, UMICRO #### [facility] [address] [place] [address] Dr. Rajinder Cooley SPEC GRAVITY >=1.030 Abnormal 1.005-<=1.025 [facility] Comment on above: Performed By: #### Celestina SHORT, UMICRO #### [facility] [address] [place] [address] Dr. Rajinder Cooley UA PROTEIN Negative Normal NEGATIVE/ TRACE [facility] Comment on above: Performed By: #### Celestina SHORT, UMICRO #### [facility] [address] [place] [address] Dr. Rajinder Cooley UR MICRO IND INDICATED Normal [facility] Comment on above: Performed By: #### Celestina SHORT, UMICRO #### [facility] [address] [place] [address] Dr. Rajinder Cooley Urobilinogen Qn (U) 1.0 {Ivory'U}/dL Normal 0.2 - 1. 0 [facility] Comment on above: Performed By: #### Celestina SHORT, UMICRO #### [facility] [address] [place] [address] Dr. Rajinder Cooley GROUP A STREP CULTUREon S. pyogenes Ag Ql (Unsp spec) Culture Observations: NEGATIVE FOR GROUP A STREPTOCOCCUS. Normal [facility] Comment on above: Performed By: #### S SCRN GRASTCX #### [facility] [address] [place] [address] Dr. Rajinder Cooley INFLUENZA A AND B AGon 01-22 INFLUANEGH SEE BELOW Normal [facility] Comment on above: Result Comment: Nega tive for Flu A protein angiten. Infection due to Flu A cannot be ruled out. Flu A angiten in the sample may be below the detection limit of the test. Performed By: #### L ACT #### [facility] [address] [place] [address] Dr. Rajinder Cooley [facility] SEE BELOW Normal [facility] Comment on above: Result Comment: Nega tive for Flu B protein antigen. Infection due to Flu B cannot be ruled out. Flu B antigen in the sample may be below the detection limit of the test. Performed By: #### L ACT #### [facility] [address] [place] [address] Dr. Rajinder Cooley INFLUENZA A AG Negative Normal NEGATIVE SEE COMMENT [facility] Comment on above: Performed By: #### L ACT #### [facility] [address] [place] [address] Dr. Rajinder Cooley INFLUENZA B AG Negative Normal NEGATIVE SEE COMMENT [facility] Comment on above: Performed By: #### L ACT #### [facility] [address] [place] [address] Dr. Rajinder Cooley INTERNAL CONTROLS Within Normal Limits Normal Wi thin Normal Limits [facility] Comment on above: Performed By: #### L ACT #### [facility] [address] [place] [address] Dr. Rajinder Cooley LACTATE/LACTIC ACIDon 2021 Lactate [Moles/Vol] 0.6 mmol/L Normal 0.4-1.9 [facility] Comment on above: Performed By: #### L ACT #### [facility] [address] [place] [address] Dr. Rajinder Cooley PREG HCG QUALon 01-22-2022 , QUAL Negative Normal NEGATIVE [facility] Comment on above: Performed By: #### P REG #### [facility] [address] [place] [address] Dr. Rajinder Cooley PROF 14(COMP METB)on 022 Albumin [Mass/Vol] 3.8 g/dL Normal 3.4-5.0 [facility] Comment on above: Performed By: #### S SCRN, GRASTCX #### [facility] [address] [place] [address] Dr. Rajinder Cooley Albumin/Globulin [Mass ratio] 0.9 {ratio} Normal [facility] Comment on above: Performed By: #### S EMIGDIO GRASTCX #### [facility] [address] [place] [address] Dr. Rajinder Cooley ALP [Catalytic activity/Vol] 55 U/L Normal 46-116 [facility] Comment on above: Performed By: #### S EMIGDIO GRASTCX #### [facility] [address] [place] [address] Dr. Rajinder Cooley ALT [Catalytic activity/Vol] 18 U/L Normal 14-59 [facility] Comment on above: Performed By: #### S EMIGDIO GRASTCX #### [facility] [address] [place] [address] Dr. Rajinder Cooley Anion gap [Moles/Vol] 12.9 mmol/L Normal [facility] Comment on above: Performed By: #### S EMIGDIO GRASTCX #### [facility] [address] [place] [address] Dr. Rajinder Cooley AST [Catalytic activity/Vol] 21 U/L Normal 15-37 [facility] Comment on above: Performed By: #### S EMIGDIO GRASTCX #### [facility] [address] [place] [address] Dr. Rajinder Cooley Bilirubin [Mass/Vol] 0.6 mg/dL Normal 0.2-1.0 [facility] Comment on above: Performed By: #### S EMIGDIO GRASTCX #### [facility] [address] [place] [address] Dr. Rajinder Cooley Calcium [Mass/Vol] 9.0 mg/dL Normal 8.5-10.1 [facility] Comment on above: Performed By: #### S EMIGDIO GRASTCX #### [facility] [address] [place] [address] Dr. Rajinder Cooley Chloride [Moles/Vol] 99 mmol/L Normal 98-107 [facility] Comment on above: Performed By: #### S EMIGDIO GRASTCX #### [facility] [address] [address] [address] Rajinder Cooley CO2 [Moles/Vol] 22.6 mmol/L Normal 21.0-32.0 [facility] Comment on above: Performed By: #### S SCRN, GRASTCX #### [facility] [address] [address] [address] Rajinder Cooley Creatinine [Mass/Vol] 0.70 mg/dL Normal 0.55-1.02 [facility] Comment on above: Performed By: #### S SCRN, GRASTCX #### [facility] [address] [address] [address] Rajinder Cooley EGFR-AF THAI >60 Normal >=60 [facility] Comment on above: Performed By: #### S SCRN, GRASTCX #### [facility] [address] [address] [address] Rajinder Cooley EGFR-NON AF THAI >60 Normal >=60 [facility] Comment on above: Performed By: #### S SCRN, GRASTCX #### [facility] [address] [address] [address] Rajinder Cooley Globulin (S) [Mass/Vol] 4.3 g/dL Normal [facility] Comment on above: Performed By: #### S SCRN, GRASTCX #### [facility] [address] [address] [address] Rajinder Cooley Glucose [Mass/Vol] 84 mg/dL Normal 74-106 [facility] Comment on above: Performed By: #### S SCRN, GRASTCX #### [facility] [address] [address] [address] Rajinder Cooley Potassium [Moles/Vol] 3.5 mmol/L Normal 3.5-5.1 [facility] Comment on above: Performed By: #### S SCRN, GRASTCX #### [facility] [address] [address] [address] Rajinder Cooley Protein [Mass/Vol] 8.1 g/dL Normal 6.4-8.2 [facility] Comment on above: Performed By: #### S SCRN, GRASTCX #### [facility] [address] [place] [address] Dr. Rajinder Cooley Sodium [Moles/Vol] 131 mmol/L Critically low 136-145 [facility] Comment on above: Performed By: #### S SCRN, GRASTCX #### [facility] [address] [place] [address] Dr. Rajinder Cooley Urea nitrogen [Mass/Vol] 11.0 mg/dL Normal 7.0-18.0 [facility] Comment on above: Performed By: #### S SCRN, GRASTCX #### [facility] [address] [place] [address] Dr. Rajinder Cooley Urea nitrogen/Creatinine [Mass ratio] 15.7 mg/mg Normal [facility] Comment on above: Performed By: #### S SCRN, GRASTCX #### [facility] [address] [place] [address] Dr. Rajinder Cooley PROTIMEon 01-22-2022 INR Coag (PPP) [Relative time] 1.06 {INR} Normal [facility] Comment on above: Performed By: #### L ACT #### [facility] [address] [place] [address] Dr. Rajinder Cooley INR GUIDELINES SEE BELOW Normal [facility] Comment on above: Result Comment: VIVI RED INR: 2.0 - 3.0 CONDITIONS NOT LISTED BELOW 2.5 - 3.5 FOR PROSTHETIC HEART VALVE REPLACEMENT 2.5 - 3.5 RECURRENT THROMBOSIS Performed By: #### L ACT #### [facility] [address] [place] [address] Dr. Rajinder Cooley PT Coag (PPP) [Time] 11.4 s Normal 9.0-11.6 [facility] Comment on above: Performed By: #### L ACT #### [facility] [address] [place] [address] Dr. Rajinder Cooley PTTon 01-22-2022 aPTT Coag (Bld) [Time] 23.9 s Normal 22.3-36.2 [facility] Comment on above: Performed By: #### L ACT #### [facility] [address] [place] [address] Dr. Rajinder Cooley STREPT SCREENon 01-22-2022 STREP SCREEN A Negative Normal NEGATIVE [facility] Comment on above: Performed By: #### S SCRArpita, GRASTCX #### [facility] [address] [place] [address] Dr. Rajinder Cooley TROPONIN, HIGH SENSITIVITYon 01-22-2022 HSTROP 4.9 pg/mL Normal 4.0-51.3 [facility] Comment on above: Result Comment: CUT- OFF POINTS HAVE BEEN ESTABLISHED BASED ON THE FOURTH UNIVERSAL DEFINITIONS OF MYOCARDIAL INFARCTION. THE UPPER REFERENCE LIMIT (URL) OF TROPONIN, DEFINED THE 99TH PERCENTILE OF cTnI DISTRIBUTION IN A REFERENCE POPULATION, HAS BEEN CONFIRMED THE DECISION THRESHOLD FOR ND DIAGNOSIS. Performed By: #### S EMIGDIO, GRASTCX #### [facility] [address] [place] [address] Dr. Rajinder Cooley TSHon 01-22-2022 TSH 1.659 uIU/mL Normal 0.358-3.740 [facility] Comment on above: Performed By: #### S EMIGDIO, GRASTCX #### [facility] [address] [place] [address] Dr. Rajinder Cooley URINE MICROSCOPIC ONLYon BACTERIA TRACE Abnormal NONE SEEN [facility] Comment on above: Performed By: #### SAUMYA VIDALESICRO #### [facility] [address] [place] [address] Dr. Rajinder Cooley Bacteria identified Cx Nom (U) NOT INDICATED Normal [facility] Comment on above: Performed By: #### E DEJA UMICRO #### [facility] [address] [place] [address] Dr. Rajinder Cooley CAST NONE SEEN Normal NONE SEEN [facility] Comment on above: Performed By: #### E DEJA UMICRO #### [facility] [address] [place] [address] Dr. Rajinder Cooley Crystals LM Nom (Urine sed) NONE SEEN Normal NONE SEEN [facility] Comment on above: Performed By: #### E SAUMYA SHORTICRO #### [facility] [address] [address] [address] Rajinder Cooley Epithelial cells LM Ql (Urine sed) RARE Normal NONE SEEN /RARE [facility] Comment on above: Performed By: #### E RUR, UMICRO #### [facility] [address] [address] [address] Rajinder Cooley MUCOUS NONE SEEN Normal NONE SEEN [facility] Comment on above: Performed By: #### E RUR, UMICRO #### [facility] [address] [address] [address] Rajinder Cooley RBC 0-2 Normal 0-2 [facility] Comment on above: Performed By: #### E DEJA, UMICRO #### [facility] [address] [place] [address] Dr. Rajinder Cooley WBC NONE SEEN Normal NONE SEEN [facility] Comment on above: Performed By: #### E DEJA, UMICRO #### [facility] [address] [address] [address] Rajinder Cooley XR CHEST 1 Von 01-22-2022 XR CHEST 1 V EXAM: XR CHEST 1 V REASON FOR EXAM: Female, 41 years, Syncope. TECHNIQUE: A single AP view of the chest is performed. COMPARISON: 07/03/2009. FINDINGS: The lungs are expanded and clear. Normal pleura. Normal size heart. Normal mediastinum and cristian. Normal visualized pulmonary arteries. Normal visualized aortic arch and descending thoracic aorta. Normal visualized thoracic spine. Normal visualized ribs, clavicles, and shoulders. There is no demonstrated abnormality of the visualized soft tissue structures of the upper abdomen. IMPRESSION: Normal examination of the chest. Electronically authenticated by: ANGELO RUIZ Date: 2022-01-22 19:42 Normal [facility] HCG ( test) Dmitriy d Ql (U)Ordered By: Jose Luis Gerard on 09-24-2021 HCG ( test) Ql (U) Negative [facility] HCG,Urineon 09-24-2021 Beta HCG ( test) Ql (U) Negative Normal [facility] Comment on above: Result Comment: PERF ORMED BY: [address] [address] PATHOLOGIST [employer] DESIGNER SUSAN CHRISTINA M.D. Performed By: #### U HCG #### [place] [id number] [facility] COVID-19 FRon 09-20-2021 SARS-CoV-2 (COVID-19) RNA MUKESH+probe Ql (Unsp spec) Negative Normal Negative [facility] Comment on above: Order Comment: Healt hcare Worker?: N Result Comment: Testing for SARS-CoV-2 by RT-PCR This test was developed and its performance characteristics determined by [employer]) and validated at the [facility]. This test has not been FDA cleared or approved. This test has been authorized by FDA under an Emergency Use Authorization (EUA). This test has been validated in accordance with the FDA's Guidance Document (Policy for Diagnostics Testing in Laboratories Certified to Perform High Complexity Testing under CLIA prior to Emergency Use Authorization for Coronavirus Disease-2019 during the Public Health Emergency) issued on May 19, 2019. This test is only authorized for the duration of time the declaration that circumstances exist justifying the authorization of the emergency use of in vitro diagnostic tests for detection of SARS-CoV-2 virus and/or diagnosis of COVID-19 infection under section 564(b)(1) of the Act, 21 U.S.C. 360bbb-3(b)(1), unless the authorization is terminated or revoked sooner. PERFORMED BY: [address] [address] PATHOLOGIST [employer]IGITAL CIRCUIT DESIGNER SUSAN CHRISTINA M.D. Performed By: #### C OVID 19 [facility] #### [address] [address] [facility] COVID-19 Positive/NegativeOr dered By: Jose Luis Gerard on 09-20-2021 SARS-CoV-2 (COVID-19) N gene MUKESH+probe Ql (Resp) Negative Negative [facility] Comment on above: Testing for SARS-CoV -2 by RT-PCR This test was developed and its performance characteristics determined by [employer]) and validated at the [facility]. This test has not been FDA cleared or approved. This test has been authorized by FDA under an Emergency Use Authorization (EUA). This test has been validated in accordance with the FDA's Guidance Document (Policy for Diagnostics Testing in Laboratories Certified to Perform High Complexity Testing under CLIA prior to Emergency Use Authorization for Coronavirus Disease-2019 during the Public Health Emergency) issued on May 19, 2019. This test is only authorized for the duration of time the declaration that circumstances exist justifying the authorization of the emergency use of in vitro diagnostic tests for detection of SARS-CoV-2 virus and/or diagnosis of COVID-19 infection under section 564(b)(1) of the Act, 21 U.S.C. 360bbb-3(b)(1), unless the authorization is terminated or revoked sooner. CBC AUTO DIFFon 08-06-2021 BASO # 0.0 103/ul Normal 0.0-0.1 [facility] Comment on above: Performed By: #### S EMIGDIO GRASTCX #### [facility] [address] [place] [address] Dr. Rajinder Cooley Basophils/100 WBC (Bld) 0.7 % Normal 0.2-2.0 [facility] Comment on above: Performed By: #### S EMIGDIO GRASTCX #### [facility] [address] [place] [address] Dr. Rajinder Cooley EO # 0.1 103/ul Normal 0.0-0.7 [facility] Comment on above: Performed By: #### S SCRN GRASTCX #### [facility] [address] [place] [address] Dr. Rajinder Cooley Eosinophils/100 WBC (Bld) 1.2 % Normal 0.9-7.0 [facility] Comment on above: Performed By: #### S SCRN GRASTCX #### [facility] [address] [place] [address] Dr. Rajinder Cooley Erythrocyte distribution width (RBC) [Ratio] 13.7 % Normal 11.0-15.0 [facility] Comment on above: Performed By: #### S SCRN, GRASTCX #### [facility] [address] [place] [address] Dr. Rajinder Cooley Hematocrit (Bld) [Volume fraction] 40.3 % Normal 36.0-48.0 [facility] Comment on above: Performed By: #### S SCRN, GRASTCX #### [facility] [address] [place] [address] Dr. Rajinder Cooley Hemoglobin (Bld) [Mass/Vol] 13.0 g/dL Normal 12.0-16.0 [facility] Comment on above: Performed By: #### S SCRN, GRASTCX #### [facility] [address] [place] [address] Dr. Rajinder Cooley IG # 0.04 10e3/ul Critically high 0.00-0.03 [facility] Comment on above: Performed By: #### S SCRN, GRASTCX #### [facility] [address] [place] [address] Dr. Rajinder Cooley IG % 1.0 % Critically high 0.0-0.5 [facility] Comment on above: Performed By: #### S SCRN, GRASTCX #### [facility] [address] [place] [address] Dr. Rajinder Cooley LYMPH # 1.5 103/ul Normal 1.2-3.8 [facility] Comment on above: Performed By: #### S SCRN, GRASTCX #### [facility] [address] [place] [address] Dr. Rajinder Cooley Lymphocytes/100 WBC (Bld) 35.9 % Normal 20.5-60.0 [facility] Comment on above: Performed By: #### S SCRN, GRASTCX #### [facility] [address] [place] [address] Dr. Rajinder Cooley MANUAL DIFF REQ NO Normal [facility] Comment on above: Performed By: #### S SCRN, GRASTCX #### [facility] [address] [place] [address] Dr. Rajinder Cooley MCH (RBC) [Entitic mass] 30.8 pg Normal 26.7-34.0 [facility] Comment on above: Performed By: #### S URSULAN, GRASTCX #### [facility] [address] [place] [address] Dr. Rajinder Cooley MCHC (RBC) [Mass/Vol] 32.3 g/dL Normal 29.9-35.2 [facility] Comment on above: Performed By: #### S URSULAN, GRASTCX #### [facility] [address] [place] [address] Dr. Rajinder Cooley MCV (RBC) [Entitic vol] 95.5 fL Normal 81.0-99.0 [facility] Comment on above: Performed By: #### S EMIGDIO GRASTCX #### [facility] [address] [place] [address] Dr. Rajinder Cooley MONO # 0.2 103/ul Critically low 0.3-0.8 [facility] Comment on above: Performed By: #### S EMIGDIO GRASTCX #### [facility] [address] [place] [address] Dr. Rajinder Cooley Monocytes/100 WBC (Bld) 5.6 % Normal 1.7-12.0 [facility] Comment on above: Performed By: #### S EMIGDIO GRASTCX #### [facility] [address] [place] [address] Dr. Rajinder Cooley NEUT # 2.3 103/ul Normal 1.4-6.5 [facility] Comment on above: Performed By: #### S EMIGDIO, GRASTCX #### [facility] [address] [place] [address] Dr. Rajinder Cooley Neutrophils/100 WBC (Bld) 55.6 % Normal 43.0-75.0 [facility] Comment on above: Performed By: #### S EMIGDIO, GRASTCX #### [facility] [address] [place] [address] Dr. Rajinder Cooley Platelet mean volume (Bld) [Entitic vol] 10.2 fL Normal 9.5-13.5 [facility] Comment on above: Performed By: #### S SCRN, GRASTCX #### [facility] [address] [address] [address] Rajinder Cooley PLT 220 103/ul Normal 150-450 [facility] Comment on above: Performed By: #### S SCRN, GRASTCX #### [facility] [address] [address] [address] Rajinder Cooley RBC 4.22 106/ul Normal 4.20-5.40 [facility] Comment on above: Performed By: #### S SCRN, GRASTCX #### [facility] [address] [address] [address] Rajinder Coloey WBC 4.1 103/ul Normal 4.0-11.0 [facility] Comment on above: Performed By: #### S SCRN, GRASTCX #### [facility] [address] [place] [address] Dr. Rajinder Cooley PREG HCG QUALon 08-06-2021 , QUAL Negative Normal NEGATIVE [facility] Comment on above: Performed By: #### S SCRN, GRASTCX #### [facility] [address] [address] [address] Rajinder Cooley PROF CHEM 8 (BAS METB)on Anion gap [Moles/Vol] 15.8 mmol/L Normal [facility] Comment on above: Performed By: #### L ACT #### [facility] [address] [address] [address] Rajinder Cooley Calcium [Mass/Vol] 8.9 mg/dL Normal 8.5-10.1 [facility] Comment on above: Performed By: #### L ACT #### [facility] [address] [address] [address] Rajinder Cooley Chloride [Moles/Vol] 105 mmol/L Normal 98-107 [facility] Comment on above: Performed By: #### L ACT #### [facility] [address] [address] [address] Rajinder Cooley CO2 [Moles/Vol] 21.2 mmol/L Normal 21.0-32.0 [facility] Comment on above: Performed By: #### L ACT #### [facility] [address] [address] [address] Rajinder Cooley Creatinine [Mass/Vol] 0.96 mg/dL Normal 0.55-1.02 [facility] Comment on above: Performed By: #### L ACT #### [facility] [address] [address] [address] Rajinder Cooley EGFR-AF THAI >60 Normal >=60 [facility] Comment on above: Performed By: #### L ACT #### [facility] [address] [address] [address] Rajinder Cooley EGFR-NON AF THAI >60 Normal >=60 [facility] Comment on above: Performed By: #### L ACT #### [facility] [address] [address] [address] Rajinder Cooley Glucose [Mass/Vol] 83 mg/dL Normal 74-106 [facility] Comment on above: Performed By: #### L ACT #### [facility] [address] [address] [address] Rajinder Cooley Potassium [Moles/Vol] 4.0 mmol/L Normal 3.5-5.1 [facility] Comment on above: Performed By: #### L ACT #### [facility] [address] [address] [address] Rajinder Cooley Sodium [Moles/Vol] 138 mmol/L Normal 136-145 [facility] Comment on above: Performed By: #### L ACT #### [facility] [address] [address] [address] Rajinder Cooley Urea nitrogen [Mass/Vol] 10.0 mg/dL Normal 7.0-18.0 [facility] Comment on above: Performed By: #### L ACT #### [facility] [address] [place] [address] Dr. Rajinder Cooley Urea nitrogen/Creatinine [Mass ratio] 10.4 mg/mg Normal [facility] Comment on above: Performed By: #### L ACT #### [facility] [address] [address] [address] Rajinder Cooley SCREENING MAMMOGRAM W/MEERA, BILATERAL*on 06-28-2021 SCREENING MAMMOGRAM W/MEERA, BILATERAL* COMPARISON: No prior exams, baseline examination TECHNIQUE: 2D and 3D Tomosynthesis of the right and left breasts was performed. FINDINGS: Breast composition demonstrates heterogeneously dense parenchyma. No suspicious microcalcifications, asymmetry, architectural distortion, or associated features are present. IMPRESSION: BIRADS 1: Negative mammogram Board Certified Radiologist. Accredited by the ACR and FDA. MAMMOGRAPHY IS VERY IMPORTANT TO YOUR HEALTH. THE CURRENT [employer] AND [employer] GUIDELINES RECOMMENDS ANNUAL MAMMOGRAPHY BEGINNING AT AGE 40 THIS FACILITY USES A REMINDER SYSTEM TO ENSURE ALL PATIENTS RECEIVE REMINDER NOTIFICATIONS AT THE APPROPRIATE TIME BASED ON THE RECOMMENDATIONS OF THIS EXAM. Report reported and signed by Jovan Ashby on 07/01/2021 0657 Normal [facility] [employer] Q - THINPREP(R) TIS AND HPV MRNA E6/E7 RFL HPV 16/18/45on 05-30-2021 CLINICAL INFORMATION: None given Normal [facility] [employer] Comment on above: Order Comment: [facility] performed at: [facility], [address] [place] [address], [address] [place] [address] - [place], [address], Manager Inventory Control: Neo Ospina MD [facility] Collection Date/Time: [id number] [facility] Results Received Date/Time: [id number] [facility] Reported Date/Time: FASTING: NO Performed By: #### 9 1414 #### [facility] Default [address] [place] [address] COMMENT SEE NOTE Normal [facility] [facility]aking Operator Comment on above: Order Comment: [facility] Testing performed at: [facility], [address] [place] [address], [address] [place] [address] - [place], [address], Manager Inventory Control: Neo Ospina MD [facility] Collection Date/Time: [id number] [facility] Results Received Date/Time: [id number] [facility] Reported Date/Time: FASTING: NO Result Comment: EXPL ANATORY NOTE: The Pap is a screening test for cervical cancer. It is not a diagnostic test and is subject to false negative and false positive results. It is most reliable when a satisfactory sample, regularly obtained, is submitted with relevant clinical findings and history, and when the Pap result is evaluated along with historic and current clinical information. Performed By: #### 9 1414 #### [facility] Default [address] [place] [address] COMMENT: This Pap test has been evaluated with computer assisted technology. Normal [facility] Comment on above: Order Comment: [facility] Testing performed at: [facility], [address] [place] [address], [address] [place] [address], Manager Inventory Control: Neo Ospina MD [facility] Collection Date/Time: [facility] Results Received Date/Time: [facility] Reported Date/Time: FASTING: NO Performed By: #### 9 1414 #### [facility] Default [address] [place] [address] COUNTER CLERK TRACTOR PARTS: SEE NOTE Normal [facility] Comment on above: Order Comment: [facility] Testing performed at: [facility], [address] [place] [address], [address] [place] [address], [address] [place] [address], Manager Inventory Control: Neo Ospina MD [facility] Collection Date/Time: [facility] Results Received Date/Time: [facility] Reported Date/Time: FASTING: NO Result Comment: KMB, CT(ASCP) CT screening location: [place] [address]. Performed By: #### 9 1414 #### [facility] Default [address] [place] [address] HPV mRNA E6/E7 Not detected Normal Not Detected [facility] Comment on above: Order Comment: [facility] Testing performed at: [facility], [address] [place] [address], [address] [place] [address], [address] [place] [address], Manager Inventory Control: Neo Ospina MD [facility] Collection Date/Time: [facility] Results Received Date/Time: [facility] Reported Date/Time: [id number] FASTING: NO Result Comment: Meth odology: Selector Packer-Mediated Amplification This assay detects E6/E7 viral messenger RNA (mRNA) from 14 high-risk HPV types (16,18,31,33,35,39,45,51,52,56,58,59,66,68). The analytical performance characteristics of this assay have been determined by [facility]. The modifications have not been cleared or approved by the FDA. This assay has been validated pursuant to the CLIA regulations and is used for clinical purposes. For additional information, please refer to http://education.Tiansheng/faq/FOH223i3 (This link if provided for information/ educational purposes only.) Performed By: #### 9 1414 #### [facility] Default [address] [place] [address] INTERPRETATION/RESU LT: Negative Normal [facility] Comment on above: Order Comment: [facility] performed at: [facility] [place] [address], Manager Inventory Control: Neo Ospina MD [facility] Collection Date/Time: [id number] [facility] Results Received Date/Time: [facility] Reported Date/Time: FASTING: NO Performed By: #### 9 1414 #### [facility] Default [address] [place] [address] LMP: None given Normal [facility] Comment on above: Order Comment: [facility] performed at: [facility], [address] [place] [address], Manager Inventory Control: Neo Ospina MD [facility] Collection Date/Time: [id number] [facility] Results Received Date/Time: [facility] Reported Date/Time: FASTING: NO Performed By: #### 9 1414 #### [facility] Default [address] [place] [address] PREV. BX: None given Normal [facility] Comment on above: Order Comment: [facility] performed at: [facility] [place], [address], Manager Inventory Control: Neo Ospina MD [facility] Collection Date/Time: [facility] Results Received Date/Time: [facility] Reported Date/Time: FASTING: NO Performed By: #### 9 1414 #### [facility] Default [address] [place] [address] PREV. PAP: None given Normal [facility] Coating And Baking Operator Comment on above: Order Comment: [facility] Testing performed at: [facility], [address] [place] [address], [address] [place] [address], Manager Inventory Control: Neo Ospina MD [facility] Collection Date/Time: [facility] Results Received Date/Time: [facility] Reported Date/Time: FASTING: NO Performed By: #### 9 1414 #### [facility] Default [address] [place] [address] REVIEW COUNTER CLERK TRACTOR PARTS: SEE NOTE Normal [facility] Coating And Baking Operator Comment on above: Order Comment: [facility] Testing performed at: [facility], [address] [place] [address], [address] [place] [address], [address] [place] [address], Manager Inventory Control: Neo Ospina MD [facility] Collection Date/Time: [facility] Results Received Date/Time: [facility] Reported Date/Time: FASTING: NO Result Comment: PCJ, SCT(ASCP) CT screening location: [place] [address]. Performed By: #### 9 1414 #### [facility] Default [address] [place] [address] SOURCE: None given Normal [facility] Specialist Comment on above: Order Comment: [facility] Testing performed at: [facility], [address] [place] [address], [address] [place] [address], [address] [place] [address], Manager Inventory Control: Neo Ospina MD [facility] Collection Date/Time: [facility] Results Received Date/Time: [facility] Reported Date/Time: FASTING: NO Performed By: #### 9 1414 #### [facility] Default [address] [place] [address] STATEMENT OF ADEQUACY: SEE NOTE Normal [facility] Coating And Baking Operator Comment on above: Order Comment: [facility] Testing performed at: [facility], [address] [facility], [address] [place] [address] - [facility], [place], [address], Manager Inventory Control: Neo Ospina MD [facility] Collection Date/Time: [id number] [facility] Results Received Date/Time: [facility] Reported Date/Time: FASTING: NO Result Comment: Sati sfactory for evaluation. Endocervical/transformation zone component absent. Performed By: #### 9 1414 #### [facility] Default [address] [place] [address] Vital Signs Date Time Vital Sign Value Performing Clinician Facility 01-01-2023 14:00-0500 Body height 160.02 cm Jill Noel Other [facility] Other 01-01-2023 14:00-0500 Body mass index (BMI) [Ratio] 26.57 kg/m2 Jill Noel Other [facility] Other 01-01-2023 14:00-0500 Body weight 68.04 kg Jill Noel Other [facility] Other 01-01-2023 14:00-0500 Diastolic blood pressure 84 mm[Hg] Jill Noel Other [facility] Other 01-01-2023 14:00-0500 Systolic blood pressure 130 mm[Hg] Jill Noel Other [facility] Other 09-24-2021 13:45-0400 Diastolic blood pressure 82 mm[Hg] MD Jose Luis Gerard Work Phone: [facility] 09-24-2021 13:45-0400 Heart rate 84 /min MD Jose Luis Gerard Work Phone: [facility] 09-24-2021 13:45-0400 Respiratory rate 18 /min MD Jose Luis Gerard Work Phone: [facility] 09-24-2021 13:45-0400 SaO2% (BldA) [Mass fraction] 98 % MD Jose Luis Gerard Work Phone: [facility] 09-24-2021 13:45-0400 Systolic blood pressure 112 mm[Hg] MD Jose Luis Gerard Work Phone: [facility] 09-24-2021 12:47-0400 Body height 162.56 cm MD Jose Luis Gerard Work Phone: [facility] 09-24-2021 12:47-0400 Body temperature 98.1 [degF] MD Jose Luis Gerard Work Phone: [facility] 09-24-2021 12:47-0400 Body weight 61.23 kg MD Jose Luis Gerard Work Phone: [facility] Encounters Encounter Date Encounter Type Care Provider Facility Start: 08-10-2023 End: 08-10-2023 ambulatory HARISH M WILLAM-NOSSEK Not Available Start: 06-02-2023 End: 06-02-2023 ambulatory HARISH M WILLAM-NOSSEK Not Available Start: 05-28-2023 End: 05-28-2023 ambulatory OLIVER REYES Not Available Start: 03-26-2023 End: 03-26-2023 ambulatory OLIVER REYES Not Available Start: 03-26-2023 Chart abstracting Oliver dodson MD Work Phone: [facility] Start: 03-18-2023 End: 03-18-2023 ambulatory Shelley San Other [facility] Other Start: 03-18-2023 Encounter by [employer] Shelley San [facility] Start: 01-22-2023 End: 01-22-2023 ambulatory HARISH Whitley WILLAMJOSERamirez Not Available Start: 01-01-2023 End: 01-01-2023 ambulatory Jill Sadie Other [facility] Other Start: 01-01-2023 Office outpatient visit 15 minutes Jill Noel [facility] Start: 12-22-2022 End: 12-22-2022 ambulatory Shelley San Other [facility] Other Start: 12-22-2022 Encounter by [employer] Shelley San [facility] Start: 10-09-2022 End: 10-09-2022 ambulatory Shelley San Other [facility] Other Start: 10-09-2022 Telephone encounter Shelley San [facility] Start: 03-10-2022 End: 03-10-2022 ambulatory Jose Luis Gerard Other [facility] Other Start: 03-10-2022 Encounter by [employer] Jose Luis Gerard [facility] Gastroenterology Start: 03-10-2022 Telephone encounter Shelley San [facility] Start: 02-21-2022 End: 02-21-2022 ambulatory Shelley San Other [facility] Other Start: 02-21-2022 Telephone encounter Shelley San [facility] Start: 02-11-2022 End: 02-12-[address] SHELLEY SAN Facility:[facility] Start: 02-11-2022 End: 02-12-[address] GERONIMO HANNAH Facility:[facility] Start: 01-30-2022 End: 01-31-[address] GERONIMO HANNAH Facility:[facility] Start: 01-27-2022 End: 01-27-[address] SHELLEY SAN Facility:[facility] Start: 01-22-2022 End: 01-23-[address] SHELLEY SAN Facility:[facility] Start: 01-01-2022 End: 01-01-2022 ambulatory Jose Luis Gerard Other [facility] Other Start: 01-01-2022 Telephone encounter Jose Luis DAVILA G Gastroenter[facility] Start: 10-31-2021 End: 11-01-2021 ambulatory IGNACIO SMITH Facility:[facility] Start: 09-24-2021 End: 09-24-2021 Admission to same day surgery center MD Jose Luis Gerard Work Phone: [facility] Start: 09-20-2021 End: 09-20-2021 Patient encounter procedure MD Jose Luis Gerard Work Phone: [facility] Start: 08-06-2021 End: 08-07-[address] SHELLEY SAN Facility:[facility] Start: 06-19-[address] SHELLEY SAN Facil ity:H1 Procedures Date Procedure Procedure Detail Performing Clinician Start: 09-24-2021 Esophagogastroduodenoscopy MD Jose Luis Gerard Work Phone: Start: 06-28-2021 Mammography Oliver dodson MD Work Phone: Plan of Treatment Date Care Activity Detail Author Start: 07-25-2027 Screening for malignant neoplasm of cervix [facility] Start: 04-14-2023 End: 04-14-2023 Patient encounter procedure 04/14/2023 4:30 PM EST Office Visit [facility] [address] [facility] [address] [place] [address] Harish Parry, JAVA J2EE APPLICATION DEVELOPER-[facility] [address] [facility] [address] [place] [address] [facility] Start: 03-26-2023 End: 03-26-2023 Patient encounter procedure 03/26/2023 3:00 PM EST Office Visit [facility] [address] [place] [address] Oliver Reyes MD [address] [facility] [address] [place] [address] [facility] Start: 10-17-2022 Influenza vaccination Influenza Vaccine (#1) [facility] Start: 06-28-2022 Screening for malignant neoplasm of breast Mammogram [facility] Start: 09-24-2021 Esophagogastroduodenoscopy DH EGD (Not Applicable) [facility] Start: 09-24-2021 [facility] Work Phone: Start: 09-24-2021 End: 09-24-2021 Admission to same day surgery center Departed Surgical Day Care [facility] Start: 01-25-2001 Screening for malignant neoplasm of cervix Pap Smear [facility] Immunizations Immunization Date Immunization Notes Care Provider Fa cility 12-05-2020 COVID-19 mRNA Comirnaty (Pfizer) MD Jose Luis Gerard Work Phone: [facility] 03-07-2020 COVID-19 mRNA Comirnatroxane (Pfizer) MD Jose Luis Gerard Work Phone: [facility] 02-15-2020 COVID-19 mRNA Comirnatroxane (Pfizer) MD Jose Luis Gerard Work Phone: [facility] 01-12-2017 influenza virus vaccine, unspecified formulation Oliver Reyes MD Work Phone: [facility] 12-22-2011 tetanus toxoid, reduced diphtheria toxoid, and acellular pertussis vaccine, adsorbed Jose Luis Gerard Other [facility] Other Payers Date Payer Category Payer Medicaid [facility] BC[employer] [place]ICA[place] [id number] 2022-Present [address] [place] [address] [id number] 2022 Medicaid [id number] 1980 Unknown [id number] [id number] 1980 Unknown [id number] 2.16.840.1.729597.3.579.2.593 1980 Unknown [id number] 2.16.840.1.589503.3.579.2.593 1980 Unknown [id number] 2.16.840.1.190400.3.579.2.593 1980 Unknown [id number] 2.16.840.1.621797.3.579.2.593 1980 Unknown [id number] 2.16.840.1.531939.3.579.2.593 1980 Unknown [id number] 2.16.840.1.484328.3.579.2.593 1980 Unknown [id number] 2.16.840.1.716752.3.579.2.593 1980 Unknown [id number] 2.16.840.1.571804.3.579.2.1259 1980 Unknown [id number] 2.16.840.1.036480.3.579.2.1259 1980 Unknown [id number] 2.16.840.1.030601.3.579.2.1259 1980 Unknown [id number] 2.16.840.1.984821.3.579.2.1259 1980 Unknown [id number] 2.16.840.1.601938.3.579.2.1259 1959 Medicaid [id number] Self-pay Self Pay [id number] Social History Date Type Detail Facility Start: 09-24-2021 End: 07-12-2022 Tobacco smoking status NHIS Ex-smoker (finding) [facility] Start: 1980 Sex Assigned At Female F [facility] Start: 11-12-2022 End: 01-22-[address] [facility] Other History of tobacco use Current smoker [facility] History of tobacco use Cigarette Smoker [facility] Start: 07-12-2022 Tobacco use and exposure Smokeless tobacco non-user [facility] Start: 03-26-2023 Alcohol intake Ex-drinker (finding) [facility] Start: 11-12-2022 End: 01-22-2023 History of Social function [facility] Start: 11-12-2022 Alcohol Comment 1 cup coffee [facility] Start: 1980 Sex Assigned At Not on file [facility] Start: 04-30-2022 Gender identity Identifies as female gender (finding) [facility] Goals Date Patient Goal Desired Activity /State Evaluation note 01-01-2023 Note Date & Type Note Facility 01-01-2023 Evaluation note Encounter Date Diagnosis Assessment Notes Dec, Strain of mid-back, subsequent encounter (ICD-10 - S29.012D) Discussed diagnosis with patient. Prednisone and Robaxin ordered today. Medication profiles and possible SE reviewed with patient. Continue Robaxin at night as ordered. May use IBuprofen. Also recommend salon pas pain releiving patches. . Moist heat/ice to back PRN. Back exercises recommended. Notify office should symptoms not improve and persist. Warning s/s reviewed with patient today. Patient to go immediately to ER should he experience any of these. Follow up in office in 1 week if no bettert. Patient verbalizes understanding and agrees to treatment plan. , [facility] Other Procedure note 09-24-2021 Note Date & Type Note Facility 09-24-2021 Procedure note [facility] Evaluation note Note Date & Type Note Facility Evaluation note No assessment information availa ble [facility] Work Phone: Evaluation note Note Date & Type Note Facility Evaluation note No Information Allison [facility] Other History general Narrative - Reported Note Date & Type Note Facility History general Narrative - Reported Type Medical History bipolar Medical History GERD Medical History PCOS Medical History IBS Surgical History wisdom teeth Surgical History chest tube as infant - collapsed lung 1979 Surgical History Tooth extraction 01/18/2016 Surgical History Nexplanon insertion 01/05/17 Surgical History cervical epidural st eroid injection 11/24/16 01/02/17 Surgical History Left C3,4 3rd occipi son medial branch RF denervationHogan Surgical History Left C3,4,5,6,7,8 me dial nerve branch blkock Surgical History EGD with Bx 04/2018 Surgical History Left C4,5,6,7 Medial brnch denervation Surgical History Left C4, C5, C6, C7 medial branch block Surgical History Right c2,3,4 medial branch nerve RFdenervation Surgical History sacral iliac joint injection 11/2019 Hospitalization History See Sx Hx Hospitalization History injections in he r neck/ medial branch block [facility] Other Summary Purpose Family History No Family History Records Found Relationship Condition Age at Onset Recorded Date/T tasia grandparent Kidney disorder Unknown Heart problem Unknown grandparent Malignant neoplasm of pancreas Unknown Advance Directives No Advanced Directives Records Found Advance Directive Response Recorded Date/ Time Advance Directives No April 19 2:21pm Chief Complaint and Reason for Visit Chief Complaint GERD, Nausea, Vomiti ng GERD, Nausea, Vomiting Additional Source Comments INFORMATION SOURCE (unrecogn ized section and content) DATE CREATED AUTHOR 07/04/2021 [facility] dical Specialist DATE CREATED AUTHOR AUTHOR'S ORGANIZ ATION 09/30/2021 [facility] DATE CREATED AUTHOR AUTHOR'S ORGANIZ ATION 02/18/2022 [facility] DATE CREATED AUTHOR AUTHOR'S ORGANIZ ATION 08/11/2023 [facility] dical Specialists EPIC Care Teams (unrecognized sec tion and content) Team Status: Inactive Member Role Status Dates Jose Luis Gerard MD Attending Provider Active Shelley San MD Primary Care Provider Active Team Status: Active Member Role Status Dates Shelley San MD Primary Care Provider Active Hair Stylist Relationship Specialty Start Date End Date Devin Villanueva MD [address] [place] [address] PCP - General Cardiology 07/30/22 Leo Shin MD [address] [place] [address] Obstetrics and Gynecology 07/24/22 Harish Parry APRN-HYDRAULICS ENGINEER [address] [facility] [address] [place] [address] Nurse Practitioner Behavioral Health 07/30/22 REASON FOR VISIT (unrecogniz ed section and content) Clinical Acute IllnessReview ECHO/LABSReschedule Appointment Requestwork notelab resultsNeurologist referraltbh follow upNew Refill RequestRefill request FOR RECORDS PERTAINING TO PATIENTS WHO ARE OR HAVE BEEN ENROLLED IN A CHEMICAL DEPENDENCY/SUBSTANCEABUSE PROGRAM, SOME INFORMATION MAY BE OMITTED. This clinical summary was aggregated from multiple sources. Caution should be exercised in using it in the provision of clinical care. This summary normalizes information from multiple sources, and as a consequence, information in this document may materially change the coding, format and clinical context of patient data. In addition, data may be omitted in some cases. CLINICAL DECISIONS SHOULD BE BASED ON THE PRIMARY CLINICAL RECORDS. [facility] [employer] provides no warranty or guarantee of the accuracy or completeness of information in this document.
--- NOTE | 2023-08-17 17:42 | XR_ITS ---
[facility] [place] [id number] Patient Name: JOVANY MONROE MRN: [id number] date: 1980 Sex: F Assigned Patient Location: [facility] Current Patient Location: [facility] Accession/Order Number: [id number] Exam Date: 08/17/2023 17:28 Report Date: 08/19/2023 06:59 At the request of: JADON FLOWER Procedure: XR lumbar spine 6V w bending EXAMINATION: XR lumbar spine 6V w bending HISTORY: Sciatica, left side, M54.32 COMPARISON: No relevant comparison available. FINDINGS: BONES: Moderate anterior wedging of T12 vertebral body. Normal height and alignment of the lumbar vertebral bodies. No change in alignment during flexion and extension. No significant facet arthropathy. DISC SPACES: No significant disc height narrowing, subluxation, or endplate abnormality. PARASPINOUS: Negative. No paraspinous abnormality is seen. OTHER: Negative. XR/XR lumbar spine 6V w bending IMPRESSION: 1. T12 moderate compression fractures; slightly progressed compared to 2021. 2. No appreciable acute abnormality or significant degenerative changes of the lumbar spine. Electronically authenticated by: RAFA JAMES Date: 08/19/2023 06:59
== END 2023-08-17 17:15 | disposition home or self-care (01) ==
PROVIDERS: PCP Family Medicine; Visit Provider Nurse Practitioner Family
DX: M54.32 Sciatica, left side (principal); M48.54XS Collapsed vertebra, not elsewhere classified, thoracic region, sequela of fracture
CPT/HCPCS: 72114